=== PATIENT | male | born 1970 | race Hispanic/Latino ===

== ENCOUNTER 2016-11-19 22:31 | Emergency (ER) | payer SELFPAY ==
[~2016-11-19] VITALS: Ht 152.4 cm; Wt 75.0 kg
[~2016-11-19 22:31] MED LIST: AMOXICILLIN250 M1; ANTIVERT PO; BENADRYL 50MG C50 MG PO; BUSPIRONE5 MG PO; CELEXA20 M1 PO; CIPROFLOXACN500 MG PO; DOXYCYCL HYC100 MG PO; FLEXERIL PO; HYDROCO/APAP1 TA9 PO; NAPROSYN500 MG PO; NO HOMEMEDS; PEPCID20 MG PO; PREDNISONE10 MG PO; PRILOSEC20 MG/CAP PO; ROBITUSSIN AC10 ML PO; TESSALON PER100 MG PO; ULTRAM50 MG PO; ZITHROMAX250 MG PO; ZOLOFT25 MG PO
[2016-11-19 23:01] LABS: HEMATOCRIT 46.8 % (39.0-50.0); HEMOGLOBIN 16.5 g/dl (14.0-18.0); IMMATURE GRANULOCYTES 0.6 % (0.0-1.0); MEAN CELL VOLUME 90.2 fL CALC (80.0-100.0); MEAN CORPUSCULAR HGB 31.8 pG CALC (26.0-32.0); MEAN CORPUSCULAR HGB CONC 35.3 g/L CALC (32.0-36.0); NEUT# 3.17 thou/uL (1.82-7.42); RED BLOOD COUNT 5.19 mill/uL (4.70-6.10); RED CELL DISTRI WIDTH 12.4 % (11.5-15.5)
[2016-11-19 23:20] LABS: ALBUMIN 4.9 g/dL (3.2-5.0); ALKALINE PHOSPHATASE 95 u/l (38-126); ANION GAP 18 (6-22 (CALC)); BILIRUBIN, TOTAL 0.5 mg/dL (0.0-1.4); BUN 11 mg/dL (9-20); BUN/CREATININE RATIO 17 (12-20 (CALC)); CALCIUM 9.1 mg/dL (8.4-10.2); CARBON DIOXIDE 21 mmol/l (22-30); CHLORIDE 106 mmol/l (95-108); CREATININE 0.6 mg/dL (0.7-1.3); GFR > 60 ML/MIN (>=60 (CALC)); GFR FOR AFR.AMER. > 60 ML/MIN (>=60 (CALC)); GLUCOSE 124 mg/dL (75-110); POTASSIUM 3.9 mmol/l (3.5-5.1); SGOT/AST 38 u/l (17-59); SGPT/ALT 63 u/l (21-72); SODIUM 141 mmol/l (137-146); TOTAL PROTEIN 8.3 g/dL (6.3-8.2)
[2016-11-19 23:32] LABS: MYOGLOBIN 16 ng/mL (0 - 121)
[2016-11-20] MEDS ORDERED: NAPROSYN500 MG PO (00:18)
[2016-11-20 01:00] VITALS: BP 129/80
== END 2016-11-20 00:45 | disposition home or self-care (01) | DRG 74 ==
LOC: ED 22:31
PROVIDERS: Emergency Medicine
DX: M54.12 Radiculopathy, cervical region (principal); R20.0 Anesthesia of skin

== ENCOUNTER 2017-02-03 11:07 | Emergency (ER) | payer SELFPAY ==
[~2017-02-03] VITALS: Ht 152.4 cm; Wt 68.0 kg
[2017-02-03 12:04] LABS: HEMATOCRIT 45.6 % (39.0-50.0); HEMOGLOBIN 16.1 g/dl (14.0-18.0); IMMATURE GRANULOCYTES 0.3 % (0.0-1.0); MEAN CELL VOLUME 90.3 fL CALC (80.0-100.0); MEAN CORPUSCULAR HGB 31.9 pG CALC (26.0-32.0); MEAN CORPUSCULAR HGB CONC 35.3 g/L CALC (32.0-36.0); NEUT# 2.95 thou/uL (1.82-7.42); RED BLOOD COUNT 5.05 mill/uL (4.70-6.10); RED CELL DISTRI WIDTH 12.1 % (11.5-15.5)
[2017-02-03 12:31] LABS: ALBUMIN 4.6 g/dL (3.2-5.0); ALKALINE PHOSPHATASE 78 u/l (38-126); ANION GAP 17 (6-22 (CALC)); BILIRUBIN, TOTAL 1.1 mg/dL (0.0-1.4); BUN 9 mg/dL (9-20); BUN/CREATININE RATIO 15 (12-20 (CALC)); CALCIUM 8.8 mg/dL (8.4-10.2); CARBON DIOXIDE 23 mmol/l (22-30); CHLORIDE 105 mmol/l (95-108); CREATININE 0.6 mg/dL (0.7-1.3); GFR > 60 ML/MIN (>=60 (CALC)); GFR FOR AFR.AMER. > 60 ML/MIN (>=60 (CALC)); GLUCOSE 93 mg/dL (75-110); POTASSIUM 4.1 mmol/l (3.5-5.1); SGOT/AST 30 u/l (17-59); SGPT/ALT 42 u/l (21-72); SODIUM 140 mmol/l (137-146); TOTAL PROTEIN 7.9 g/dL (6.3-8.2)
[2017-02-03 12:56] LABS: URINE BILIRUBIN - DIPSTICK NEGATIVE (NEGATIVE); URINE BLOOD DIPSTICK NEGATIVE (NEGATIVE); URINE CLARITY CLEAR; URINE COLOR YELLOW; URINE GLUCOSE - DIPSTICK NEGATIVE (NEGATIVE); URINE KETONE NEGATIVE (NEGATIVE); URINE LEUK ESTERASE NEGATIVE (NEGATIVE); URINE NITRITE - DIPSTICK NEGATIVE (Negative); URINE PH 7.5 (4.5-8.0); URINE PROTEIN - DIPSTICK NEGATIVE (NEG-TRACE); URINE SPECIFIC GRAVITY <=1.005; URINE UROBILINOGEN - DIPSTICK 0.2 E.U./dL (0.2)
[2017-02-03 13:06] LABS: BARBITURATES NEGATIVE (NEGATIVE); COCAINE NEGATIVE (NEGATIVE); METHADONE NEGATIVE (NEGATIVE); OXCYCODONE NEGATIVE (NEGATIVE); TETRAHYDROCANNABIONOL NEGATIVE (NEGATIVE); TRICYLIC ANTIDEPRESSANTS NEGATIVE (NEGATIVE)
[2017-02-03 13:48] VITALS: BP 156/89
== END 2017-02-03 13:58 | disposition home or self-care (01) | DRG 948 ==
LOC: ED 11:07
PROVIDERS: Emergency Medicine
DX: R53.1 Weakness (principal); F41.9 Anxiety disorder, unspecified

== ENCOUNTER 2017-02-05 15:51 | Emergency (ER) | payer OTHER ==
[~2017-02-05] VITALS: Ht 152.4 cm; Wt 70.0 kg
[2017-02-05 16:28] LABS: HEMATOCRIT 45.7 % (39.0-50.0); HEMOGLOBIN 16.3 g/dl (14.0-18.0); IMMATURE GRANULOCYTES 0.3 % (0.0-1.0); MEAN CELL VOLUME 90.5 fL CALC (80.0-100.0); MEAN CORPUSCULAR HGB 32.3 pG CALC (26.0-32.0); MEAN CORPUSCULAR HGB CONC 35.7 g/L CALC (32.0-36.0); NEUT# 3.64 thou/uL (1.82-7.42); RED BLOOD COUNT 5.05 mill/uL (4.70-6.10)
[2017-02-05 16:44] LABS: ALBUMIN 4.9 g/dL (3.2-5.0); ALKALINE PHOSPHATASE 84 u/l (38-126); ANION GAP 18 (6-22 (CALC)); BILIRUBIN, TOTAL 0.8 mg/dL (0.0-1.4); BUN 14 mg/dL (9-20); BUN/CREATININE RATIO 17 (12-20 (CALC)); CARBON DIOXIDE 22 mmol/l (22-30); CHLORIDE 106 mmol/l (95-108); CREATININE 0.8 mg/dL (0.7-1.3); GFR > 60 ML/MIN (>=60 (CALC)); GFR FOR AFR.AMER. > 60 ML/MIN (>=60 (CALC)); GLUCOSE 100 mg/dL (75-110); LIPASE 140 u/l (23-300); POTASSIUM 3.9 mmol/l (3.5-5.1); SGOT/AST 28 u/l (17-59); SGPT/ALT 42 u/l (21-72); SODIUM 142 mmol/l (137-146); TOTAL PROTEIN 8.2 g/dL (6.3-8.2)
[2017-02-05 18:42] VITALS: BP 140/89
== END 2017-02-05 18:48 | disposition home or self-care (01) | DRG 556 ==
LOC: ED 15:51
PROVIDERS: Family Medicine
DX: M25.511 Pain in right shoulder (principal); M25.512 Pain in left shoulder; M79.605 Pain in left leg; R10.814 Left lower quadrant abdominal tenderness; R10.812 Left upper quadrant abdominal tenderness; F41.9 Anxiety disorder, unspecified; V49.40XA Driver injured in collision with unspecified motor vehicles in traffic accident, initial encounter
CPT/HCPCS: Q9967

== ENCOUNTER 2017-03-15 17:07 | Observation (INO) | payer SELFPAY ==
[~2017-03-15] VITALS: Ht 154.9 cm; Wt 77.0 kg
[2017-03-15 17:50] LABS: HEMATOCRIT 45.7 % (39.0-50.0); HEMOGLOBIN 16.2 g/dl (14.0-18.0); IMMATURE GRANULOCYTES 0.3 % (0.0-1.0); MEAN CELL VOLUME 90.3 fL CALC (80.0-100.0); MEAN CORPUSCULAR HGB CONC 35.4 g/L CALC (32.0-36.0); NEUT# 3.16 thou/uL (1.82-7.42); RED BLOOD COUNT 5.06 mill/uL (4.70-6.10); RED CELL DISTRI WIDTH 12.1 % (11.5-15.5)
[2017-03-15 18:06] LABS: ALKALINE PHOSPHATASE 92 u/l (38-126); ANION GAP 18 (6-22 (CALC)); BILIRUBIN, TOTAL 0.6 mg/dL (0.0-1.4); BUN 10 mg/dL (9-20); BUN/CREATININE RATIO 15 (12-20 (CALC)); CALCIUM 10.2 mg/dL (8.4-10.2); CARBON DIOXIDE 22 mmol/l (22-30); CHLORIDE 105 mmol/l (95-108); CREATININE 0.7 mg/dL (0.7-1.3); GFR > 60 ML/MIN (>=60 (CALC)); GFR FOR AFR.AMER. > 60 ML/MIN (>=60 (CALC)); GLUCOSE 95 mg/dL (75-110); POTASSIUM 4.3 mmol/l (3.5-5.1); SGOT/AST 28 u/l (17-59); SGPT/ALT 32 u/l (21-72); SODIUM 140 mmol/l (137-146); TOTAL PROTEIN 8.1 g/dL (6.3-8.2)
[2017-03-15 18:18] LABS: MYOGLOBIN 21 ng/mL (0 - 121)
[2017-03-15 18:34] LABS: URINE BILIRUBIN - DIPSTICK NEGATIVE (NEGATIVE); URINE BLOOD DIPSTICK NEGATIVE (NEGATIVE); URINE COLOR YELLOW; URINE GLUCOSE - DIPSTICK NEGATIVE (NEGATIVE); URINE KETONE NEGATIVE (NEGATIVE); URINE LEUK ESTERASE NEGATIVE (NEGATIVE); URINE NITRITE - DIPSTICK NEGATIVE (Negative); URINE PH 6.5 (4.5-8.0); URINE PROTEIN - DIPSTICK NEGATIVE (NEG-TRACE); URINE UROBILINOGEN - DIPSTICK 0.2 E.U./dL (0.2)
[2017-03-15 18:38] LABS: URINE CLARITY CLEAR
[2017-03-15 22:55] VITALS: BP 104/60
[2017-03-15 23:05] LABS: CHOLESTEROL HDL RATIO 4.1 (<4.4 (CALC))
[2017-03-16 02:59] LABS: HEMATOCRIT 43.9 % (39.0-50.0); HEMOGLOBIN 15.5 g/dl (14.0-18.0); IMMATURE GRANULOCYTES 0.4 % (0.0-1.0); MEAN CELL VOLUME 90.9 fL CALC (80.0-100.0); MEAN CORPUSCULAR HGB 32.1 pG CALC (26.0-32.0); MEAN CORPUSCULAR HGB CONC 35.3 g/L CALC (32.0-36.0); NEUT# 3.3 thou/uL (1.82-7.42); RED BLOOD COUNT 4.83 mill/uL (4.70-6.10); RED CELL DISTRI WIDTH 12.2 % (11.5-15.5)
[2017-03-16 04:00] VITALS: BP 97/60
[2017-03-16 07:09] LABS: ANION GAP 15 (6-22 (CALC)); BUN 10 mg/dL (9-20); BUN/CREATININE RATIO 14 (12-20 (CALC)); CALCIUM 9.6 mg/dL (8.4-10.2); CARBON DIOXIDE 24 mmol/l (22-30); CHLORIDE 106 mmol/l (95-108); CREATININE 0.7 mg/dL (0.7-1.3); GFR > 60 ML/MIN (>=60 (CALC)); GFR FOR AFR.AMER. > 60 ML/MIN (>=60 (CALC)); GLUCOSE 90 mg/dL (75-110); POTASSIUM 4.7 mmol/l (3.5-5.1); SODIUM 141 mmol/l (137-146)
[2017-03-16 08:32] VITALS: BP 123/78
[2017-03-16 15:00] VITALS: BP 124/76
[2017-03-16 15:35] VITALS: BP 139/77
== END 2017-03-16 15:39 | DRG 313 ==
LOC: ED 17:07 → ED-I 22:10 → ED 22:29 → MS2 22:30
PROVIDERS: Emergency Medicine; ADMIT Internal Medicine; ATTEND Internal Medicine
DX: R07.9 Chest pain, unspecified (principal); I10 Essential (primary) hypertension; R42 Dizziness and giddiness; R73.03 Prediabetes; Z82.49 Family history of ischemic heart disease and other diseases of the circulatory system; Z83.3 Family history of diabetes mellitus
CPT/HCPCS: G0378

== ENCOUNTER 2017-03-20 17:52 | Emergency (ER) | payer SELFPAY ==
[~2017-03-20] VITALS: Ht 154.9 cm; Wt 90.0 kg
[2017-03-20 19:44] LABS: HEMATOCRIT 44.9 % (39.0-50.0); HEMOGLOBIN 16.4 g/dl (14.0-18.0); IMMATURE GRANULOCYTES 0.2 % (0.0-1.0); MEAN CELL VOLUME 89.1 fL CALC (80.0-100.0); MEAN CORPUSCULAR HGB 32.5 pG CALC (26.0-32.0); MEAN CORPUSCULAR HGB CONC 36.5 g/L CALC (32.0-36.0); NEUT# 4.21 thou/uL (1.82-7.42); RED BLOOD COUNT 5.04 mill/uL (4.70-6.10); RED CELL DISTRI WIDTH 11.9 % (11.5-15.5)
[2017-03-20 20:09] LABS: ALBUMIN 4.8 g/dL (3.2-5.0); ALKALINE PHOSPHATASE 98 u/l (38-126); ANION GAP 17 (6-22 (CALC)); BILIRUBIN, TOTAL 0.9 mg/dL (0.0-1.4); BUN 12 mg/dL (9-20); BUN/CREATININE RATIO 21 (12-20 (CALC)); CALCIUM 9.7 mg/dL (8.4-10.2); CARBON DIOXIDE 23 mmol/l (22-30); CHLORIDE 100 mmol/l (95-108); CREATININE 0.6 mg/dL (0.7-1.3); GFR > 60 ML/MIN (>=60 (CALC)); GFR FOR AFR.AMER. > 60 ML/MIN (>=60 (CALC)); GLUCOSE 99 mg/dL (75-110); POTASSIUM 3.8 mmol/l (3.5-5.1); SGOT/AST 36 u/l (17-59); SGPT/ALT 29 u/l (21-72); SODIUM 136 mmol/l (137-146); TOTAL PROTEIN 8.1 g/dL (6.3-8.2)
[2017-03-20 20:21] LABS: MYOGLOBIN 15 ng/mL (0 - 121)
[2017-03-20 20:51] LABS: URINE BILIRUBIN - DIPSTICK NEGATIVE (NEGATIVE); URINE BLOOD DIPSTICK NEGATIVE (NEGATIVE); URINE COLOR YELLOW; URINE GLUCOSE - DIPSTICK NEGATIVE (NEGATIVE); URINE KETONE TRACE mg/dL (NEGATIVE); URINE LEUK ESTERASE NEGATIVE (NEGATIVE); URINE NITRITE - DIPSTICK NEGATIVE (Negative); URINE PROTEIN - DIPSTICK NEGATIVE (NEG-TRACE); URINE SPECIFIC GRAVITY 1.025; URINE UROBILINOGEN - DIPSTICK 0.2 E.U./dL (0.2)
[2017-03-20 20:52] LABS: URINE CLARITY CLEAR
[2017-03-21] MEDS ORDERED: NAPROSYN500 MG PO (00:30)
[2017-03-21 00:43] VITALS: BP 127/70
== END 2017-03-21 00:43 | disposition home or self-care (01) | DRG 313 ==
LOC: ED 17:52
PROVIDERS: Emergency Medicine
DX: R07.89 Other chest pain (principal); R73.03 Prediabetes

== ENCOUNTER 2017-03-23 14:36 | Emergency (ER) | payer SELFPAY ==
[~2017-03-23] VITALS: Ht 154.9 cm; Wt 76.0 kg
[2017-03-23] MEDS ORDERED: ASPIRIN CHEWABL81 MG PO (16:13)
[2017-03-23 16:54] LABS: HEMATOCRIT 45.1 % (39.0-50.0); HEMOGLOBIN 16.1 g/dl (14.0-18.0); IMMATURE GRANULOCYTES 0.2 % (0.0-1.0); MEAN CELL VOLUME 89.3 fL CALC (80.0-100.0); MEAN CORPUSCULAR HGB 31.9 pG CALC (26.0-32.0); MEAN CORPUSCULAR HGB CONC 35.7 g/L CALC (32.0-36.0); NEUT# 4.01 thou/uL (1.82-7.42); RED BLOOD COUNT 5.05 mill/uL (4.70-6.10); RED CELL DISTRI WIDTH 11.9 % (11.5-15.5)
[2017-03-23 17:18] LABS: ANION GAP 18 (6-22 (CALC)); BUN 12 mg/dL (9-20); BUN/CREATININE RATIO 21 (12-20 (CALC)); CALCIUM 9.4 mg/dL (8.4-10.2); CARBON DIOXIDE 23 mmol/l (22-30); CHLORIDE 98 mmol/l (95-108); CREATININE 0.6 mg/dL (0.7-1.3); GFR > 60 ML/MIN (>=60 (CALC)); GFR FOR AFR.AMER. > 60 ML/MIN (>=60 (CALC)); GLUCOSE 94 mg/dL (75-110); POTASSIUM 3.8 mmol/l (3.5-5.1); SODIUM 135 mmol/l (137-146)
[2017-03-23] MEDS ORDERED: RANITIDINE 150150 MG PO (17:46)
[2017-03-23 17:50] VITALS: BP 140/88
== END 2017-03-23 17:50 | disposition home or self-care (01) | DRG 392 ==
LOC: ED 14:36
PROVIDERS: Family Medicine
DX: K29.70 Gastritis, unspecified, without bleeding (principal); R10.13 Epigastric pain

== ENCOUNTER 2017-04-01 00:39 | Observation (INO) | payer SELFPAY ==
[~2017-04-01] VITALS: Ht 154.9 cm; Wt 72.0 kg
[~2017-04-01 00:39] MED LIST changes: +ASPIRIN CHEWABL81 MG PO; +RANITIDINE 150150 MG PO
[2017-04-01 01:49] LABS: HEMATOCRIT 43.7 % (39.0-50.0); HEMOGLOBIN 15.7 g/dl (14.0-18.0); IMMATURE GRANULOCYTES 0.2 % (0.0-1.0); MEAN CORPUSCULAR HGB CONC 35.9 g/L CALC (32.0-36.0); NEUT# 2.93 thou/uL (1.82-7.42); RED BLOOD COUNT 4.91 mill/uL (4.70-6.10)
[2017-04-01 02:02] LABS: ALBUMIN 4.6 g/dL (3.2-5.0); ALKALINE PHOSPHATASE 85 u/l (38-126); ANION GAP 18 (6-22 (CALC)); BUN 11 mg/dL (9-20); BUN/CREATININE RATIO 17 (12-20 (CALC)); CALCIUM 9.6 mg/dL (8.4-10.2); CARBON DIOXIDE 22 mmol/l (22-30); CHLORIDE 100 mmol/l (95-108); CREATININE 0.7 mg/dL (0.7-1.3); GFR > 60 ML/MIN (>=60 (CALC)); GFR FOR AFR.AMER. > 60 ML/MIN (>=60 (CALC)); GLUCOSE 89 mg/dL (75-110); SGOT/AST 20 u/l (17-59); SGPT/ALT 25 u/l (21-72); SODIUM 137 mmol/l (137-146); TOTAL PROTEIN 7.4 g/dL (6.3-8.2)
[2017-04-01 02:07] LABS: ACT PARTIAL THROMBO TIME 25.2 SECONDS (20.0-32.5); INTERNATIONAL NORMALIZED RATIO 1.1 RATIO (0.7-1.3); PROTHROMBIN TIME 11.8 SECONDS (9.0-12.5)
[2017-04-01 02:14] LABS: MYOGLOBIN 16 ng/mL (0 - 121)
[2017-04-01 03:08] LABS: URINE BILIRUBIN - DIPSTICK NEGATIVE (NEGATIVE); URINE BLOOD DIPSTICK NEGATIVE (NEGATIVE); URINE COLOR YELLOW; URINE GLUCOSE - DIPSTICK NEGATIVE (NEGATIVE); URINE KETONE TRACE mg/dL (NEGATIVE); URINE LEUK ESTERASE NEGATIVE (NEGATIVE); URINE NITRITE - DIPSTICK NEGATIVE (Negative); URINE PH 6.5 (4.5-8.0); URINE PROTEIN - DIPSTICK NEGATIVE (NEG-TRACE); URINE UROBILINOGEN - DIPSTICK 0.2 E.U./dL (0.2)
[2017-04-01 03:11] LABS: URINE CLARITY CLEAR
[2017-04-01 03:50] VITALS: BP 103/62
[2017-04-01 08:03] VITALS: BP 114/71
[2017-04-01 08:55] LABS: CHOLESTEROL HDL RATIO 3.4 (<4.4 (CALC))
[2017-04-01 11:00] VITALS: BP 119/73
[2017-04-01] MEDS ORDERED: LIPITOR20 MG PO (13:11)
[2017-04-01] MEDS ORDERED: NITROSTAT0.4 MG SL (13:11)
== END 2017-04-01 14:15 | disposition home or self-care (01) | DRG 313 ==
LOC: ED 00:39 → ED-I 03:15 → ED 03:30 → MS2 03:31
PROVIDERS: Emergency Medicine; Nurse Practitioner Family; ADMIT Internal Medicine; ATTEND Internal Medicine
DX: R07.89 Other chest pain (principal); E11.9 Type 2 diabetes mellitus without complications; E78.5 Hyperlipidemia, unspecified; F41.9 Anxiety disorder, unspecified; K21.9 Gastro-esophageal reflux disease without esophagitis; Z87.891 Personal history of nicotine dependence; Z79.84 Long term (current) use of oral hypoglycemic drugs; Z79.899 Other long term (current) drug therapy
CPT/HCPCS: G0378

== ENCOUNTER 2017-04-12 06:28 | Emergency (ER) | payer SELFPAY ==
[~2017-04-12] VITALS: Ht 154.9 cm; Wt 84.0 kg
[~2017-04-12 06:28] MED LIST changes: +LIPITOR20 MG PO; +NITROSTAT0.4 MG SL
[2017-04-12 08:34] LABS: HEMATOCRIT 43.6 % (39.0-50.0); HEMOGLOBIN 15.7 g/dl (14.0-18.0); IMMATURE GRANULOCYTES 0.2 % (0.0-1.0); MEAN CELL VOLUME 90.1 fL CALC (80.0-100.0); MEAN CORPUSCULAR HGB 32.4 pG CALC (26.0-32.0); NEUT# 3.28 thou/uL (1.82-7.42); RED BLOOD COUNT 4.84 mill/uL (4.70-6.10); RED CELL DISTRI WIDTH 12.4 % (11.5-15.5)
[2017-04-12 08:42] LABS: URINE BILIRUBIN - DIPSTICK NEGATIVE (NEGATIVE); URINE BLOOD DIPSTICK TRACE-LYSED (NEGATIVE); URINE COLOR YELLOW; URINE GLUCOSE - DIPSTICK NEGATIVE (NEGATIVE); URINE KETONE 40 mg/dL (NEGATIVE); URINE LEUK ESTERASE NEGATIVE (NEGATIVE); URINE NITRITE - DIPSTICK NEGATIVE (Negative); URINE PROTEIN - DIPSTICK NEGATIVE (NEG-TRACE)
[2017-04-12 08:44] LABS: URINE CLARITY CLEAR
[2017-04-12 08:45] LABS: BARBITURATES NEGATIVE (NEGATIVE); COCAINE NEGATIVE (NEGATIVE); METHADONE NEGATIVE (NEGATIVE); OXCYCODONE NEGATIVE (NEGATIVE); TETRAHYDROCANNABIONOL NEGATIVE (NEGATIVE); TRICYLIC ANTIDEPRESSANTS NEGATIVE (NEGATIVE)
[2017-04-12 08:47] LABS: ALBUMIN 4.8 g/dL (3.2-5.0); ALKALINE PHOSPHATASE 88 u/l (38-126); ANION GAP 19 (6-22 (CALC)); BILIRUBIN, TOTAL 1.1 mg/dL (0.0-1.4); BUN 9 mg/dL (9-20); BUN/CREATININE RATIO 16 (12-20 (CALC)); CALCIUM 9.5 mg/dL (8.4-10.2); CARBON DIOXIDE 22 mmol/l (22-30); CHLORIDE 103 mmol/l (95-108); CREATININE 0.6 mg/dL (0.7-1.3); GFR > 60 ML/MIN (>=60 (CALC)); GFR FOR AFR.AMER. > 60 ML/MIN (>=60 (CALC)); GLUCOSE 77 mg/dL (75-110); POTASSIUM 4.1 mmol/l (3.5-5.1); SGOT/AST 28 u/l (17-59); SGPT/ALT 41 u/l (21-72); SODIUM 139 mmol/l (137-146); TOTAL PROTEIN 7.6 g/dL (6.3-8.2)
[2017-04-12 08:59] LABS: MYOGLOBIN 16 ng/mL (0 - 121)
[2017-04-12 10:59] VITALS: BP 123/73
== END 2017-04-12 11:10 | disposition home or self-care (01) | DRG 149 ==
LOC: ED 06:28
PROVIDERS: Emergency Medicine
DX: R42 Dizziness and giddiness (principal); F41.9 Anxiety disorder, unspecified; R73.03 Prediabetes; K21.9 Gastro-esophageal reflux disease without esophagitis

== ENCOUNTER 2018-08-03 11:42 | Emergency (ER) | payer SELFPAY ==
[~2018-08-03] VITALS: Ht 154.9 cm; Wt 79.0 kg
[2018-08-03 12:26] LABS: HEMATOCRIT 45.4 % (39.0-50.0); HEMOGLOBIN 15.9 g/dl (14.0-18.0); IMMATURE GRANULOCYTES 0.3 % (0.0-5.0); MEAN CELL VOLUME 90.1 fL CALC (80.0-100.0); MEAN CORPUSCULAR HGB 31.5 pG CALC (26.0-32.0); NEUT# 3.2 thou/uL (1.82-7.42); RED BLOOD COUNT 5.04 mill/uL (4.70-6.10); RED CELL DISTRI WIDTH 12.3 % (11.5-15.5)
[2018-08-03 12:28] LABS: URINE BILIRUBIN - DIPSTICK NEGATIVE (NEGATIVE); URINE BLOOD DIPSTICK NEGATIVE (NEGATIVE); URINE COLOR YELLOW; URINE GLUCOSE - DIPSTICK NEGATIVE (NEGATIVE); URINE KETONE NEGATIVE (NEGATIVE); URINE LEUK ESTERASE NEGATIVE (NEGATIVE); URINE NITRITE - DIPSTICK NEGATIVE (Negative); URINE PH 6.5 (4.5-8.0); URINE PROTEIN - DIPSTICK NEGATIVE (NEG-TRACE); URINE SPECIFIC GRAVITY 1.015; URINE UROBILINOGEN - DIPSTICK 0.2 E.U./dL (0.2)
[2018-08-03 12:32] LABS: BARBITURATES NEGATIVE (NEGATIVE); COCAINE NEGATIVE (NEGATIVE); METHADONE NEGATIVE (NEGATIVE); OXCYCODONE NEGATIVE (NEGATIVE); TETRAHYDROCANNABIONOL NEGATIVE (NEGATIVE); TRICYLIC ANTIDEPRESSANTS NEGATIVE (NEGATIVE)
[2018-08-03 12:40] LABS: ALBUMIN 4.8 g/dL (3.2-5.0); ALKALINE PHOSPHATASE 77 u/l (38-126); ANION GAP 14 (6-22 (CALC)); BUN 16 mg/dL (9-20); BUN/CREATININE RATIO 28 (12-20 (CALC)); CARBON DIOXIDE 24 mmol/l (22-30); CHLORIDE 105 mmol/l (95-108); CREATININE 0.6 mg/dL (0.7-1.3); GFR > 60 ML/MIN (>=60 (CALC)); GFR FOR AFR.AMER. > 60 ML/MIN (>=60 (CALC)); LIPASE 111 u/l (23-300); POTASSIUM 3.9 mmol/l (3.5-5.1); SGOT/AST 29 u/l (17-59); SODIUM 139 mmol/l (137-146); TOTAL PROTEIN 8.2 g/dL (6.3-8.2)
[2018-08-03 12:42] LABS: BILIRUBIN, TOTAL 0.6 mg/dL (0.0-1.4)
[2018-08-03 13:36] VITALS: BP 138/77
== END 2018-08-03 12:35 | disposition short-term general hospital (02) | DRG 311 ==
LOC: ED 11:42
DX: I20.0 Unstable angina (principal); E66.3 Overweight; E78.00 Pure hypercholesterolemia, unspecified; R73.03 Prediabetes
CPT/HCPCS: J1644

== ENCOUNTER 2018-11-02 18:40 | Emergency (ER) | payer SELFPAY ==
[~2018-11-02] VITALS: Ht 154.9 cm; Wt 75.0 kg
[2018-11-02 19:40] LABS: HEMATOCRIT 47.8 % (39.0-50.0); HEMOGLOBIN 16.6 g/dl (14.0-18.0); IMMATURE GRANULOCYTES 0.2 % (0.0-5.0); MEAN CORPUSCULAR HGB 31.6 pG CALC (26.0-32.0); MEAN CORPUSCULAR HGB CONC 34.7 g/L CALC (32.0-36.0); NEUT# 5.58 thou/uL (1.82-7.42); RED BLOOD COUNT 5.25 mill/uL (4.70-6.10); RED CELL DISTRI WIDTH 12.5 % (11.5-15.5)
[2018-11-02 19:42] LABS: URINE BILIRUBIN - DIPSTICK NEGATIVE (NEGATIVE); URINE BLOOD DIPSTICK NEGATIVE (NEGATIVE); URINE COLOR YELLOW; URINE GLUCOSE - DIPSTICK NEGATIVE (NEGATIVE); URINE KETONE NEGATIVE (NEGATIVE); URINE LEUK ESTERASE NEGATIVE (NEGATIVE); URINE NITRITE - DIPSTICK NEGATIVE (Negative); URINE PH 5.5 (4.5-8.0); URINE PROTEIN - DIPSTICK TRACE mg/dL (NEG-TRACE); URINE SPECIFIC GRAVITY >=1.030; URINE UROBILINOGEN - DIPSTICK 0.2 E.U./dL (0.2)
[2018-11-02 19:45] LABS: BARBITURATES NEGATIVE (NEGATIVE); COCAINE NEGATIVE (NEGATIVE); METHADONE NEGATIVE (NEGATIVE); OXCYCODONE NEGATIVE (NEGATIVE); TETRAHYDROCANNABIONOL NEGATIVE (NEGATIVE); TRICYLIC ANTIDEPRESSANTS NEGATIVE (NEGATIVE)
[2018-11-02 19:57] LABS: ALBUMIN 5.4 g/dL (3.2-5.0); ALKALINE PHOSPHATASE 95 u/l (38-126); ANION GAP 16 (6-22 (CALC)); BUN 18 mg/dL (9-20); BUN/CREATININE RATIO 23 (12-20 (CALC)); CARBON DIOXIDE 26 mmol/l (22-30); CHLORIDE 104 mmol/l (95-108); CREATININE 0.8 mg/dL (0.7-1.3); GFR > 60 ML/MIN (>=60 (CALC)); GFR FOR AFR.AMER. > 60 ML/MIN (>=60 (CALC)); POTASSIUM 4.4 mmol/l (3.5-5.1); SGOT/AST 36 u/l (17-59); SODIUM 141 mmol/l (137-146); TOTAL PROTEIN 8.9 g/dL (6.3-8.2)
[2018-11-02] MEDS ORDERED: TAM75CAP PO (21:10)
[2018-11-02] MEDS ORDERED: NAPROXEN500 MG PO (21:10)
[2018-11-02 21:51] VITALS: BP 118/74
== END 2018-11-02 21:47 | disposition home or self-care (01) | DRG 195 ==
LOC: ED 18:40
DX: J10.1 Influenza due to other identified influenza virus with other respiratory manifestations (principal); I10 Essential (primary) hypertension

== ENCOUNTER 2019-07-10 | Emergency (ER) | payer SELFPAY ==
[~2019-07-10] MED LIST changes: +NAPROXEN500 MG PO; +TAM75CAP PO
[2019-07-10] MEDS ORDERED: BACTRIM DS1 TAB PO (05:08)
[2019-07-10] MEDS ORDERED: ASPIRIN CHEWABL81 MG PO (05:09)
[2019-07-10] MEDS ORDERED: METOPROL TAR25 MG PO (05:09)
[2019-07-10] MEDS ORDERED: ATORVASTATIN CA10 MG PO (05:10)
[2019-07-10 06:05] LABS: ALBUMIN 4.8 g/dL (3.2-5.0); ALKALINE PHOSPHATASE 84 u/l (38-126); AMYLASE 158 u/l (30-110); BILIRUBIN, TOTAL 0.9 mg/dL (0.0-1.4); BUN 13 mg/dL (9-20); BUN/CREATININE RATIO 17 (12-20 (CALC)); CHLORIDE 104 mmol/l (95-108); CREATININE 0.7 mg/dL (0.7-1.3); GFR > 60 ML/MIN (>=60 (CALC)); GFR FOR AFR.AMER. > 60 ML/MIN (>=60 (CALC)); LIPASE 134 u/l (23-300); POTASSIUM 3.8 mmol/l (3.5-5.1); SODIUM 135 mmol/l (137-146); TOTAL PROTEIN 8.3 g/dL (6.3-8.2)
[2019-07-10 06:06] LABS: HEMATOCRIT 45.9 % (39.0-50.0); HEMOGLOBIN 15.9 g/dl (14.0-18.0); IMMATURE GRANULOCYTES 0.3 % (0.0-5.0); MEAN CELL VOLUME 90.5 fL CALC (80.0-100.0); MEAN CORPUSCULAR HGB 31.4 pG CALC (26.0-32.0); MEAN CORPUSCULAR HGB CONC 34.6 g/dL CAL (32.0-36.0); NEUT# 2.64 thou/uL (1.82-7.42); RED BLOOD COUNT 5.07 mill/uL (4.70-6.10); RED CELL DISTRI WIDTH 12.5 % (11.5-15.5)
[2019-07-10 06:10] LABS: ANION GAP 15 (6-22 (CALC)); CARBON DIOXIDE 20 mmol/l (22-30); SGOT/AST 71 u/l (17-59)
[2019-07-10 06:17] LABS: MYOGLOBIN 26 ng/mL (0 - 121)
[2019-07-10] MEDS ORDERED: PEPCID20 MG PO (06:51)
== END 2019-07-10 07:15 | disposition home or self-care (01) | DRG 392 ==
PROVIDERS: Family Medicine
DX: K21.9 Gastro-esophageal reflux disease without esophagitis (principal); I10 Essential (primary) hypertension

== ENCOUNTER 2019-12-29 11:11 | Emergency (ER) | payer OTHER ==
[~2019-12-29] VITALS: Ht 152.4 cm; Wt 70.0 kg
[~2019-12-29 11:11] MED LIST changes: +ATORVASTATIN CA10 MG PO; +BACTRIM DS1 TAB PO; +METOPROL TAR25 MG PO
[2019-12-29] MEDS ORDERED: IBUPROFEN600 MG PO (12:57)
[2019-12-29] MEDS ORDERED: HYDROCO/APAP1 TA9 PO (12:57)
[2019-12-29 13:26] VITALS: BP 131/67
== END 2019-12-29 13:36 | disposition home or self-care (01) | DRG 563 ==
LOC: ED 11:11
DX: S46.912A Strain of unspecified muscle, fascia and tendon at shoulder and upper arm level, left arm, initial encounter (principal); I10 Essential (primary) hypertension; R73.03 Prediabetes; F41.9 Anxiety disorder, unspecified; K21.9 Gastro-esophageal reflux disease without esophagitis; W31.9XXA Contact with unspecified machinery, initial encounter; Y92.89 Other specified places as the place of occurrence of the external cause; Y99.0 Civilian activity done for income or pay

== ENCOUNTER 2020-07-22 19:49 | Emergency (ER) | payer SELFPAY ==
[~2020-07-22 19:49] MED LIST changes: +IBUPROFEN600 MG PO
[2020-07-22 20:16] LABS: HEMATOCRIT 47.6 % (39.0-50.0); HEMOGLOBIN 16.1 g/dl (14.0-18.0); IMMATURE GRANULOCYTES 0.7 % (0.0-5.0); MEAN CELL VOLUME 93.3 fL CALC (80.0-100.0); MEAN CORPUSCULAR HGB 31.6 pG CALC (26.0-32.0); MEAN CORPUSCULAR HGB CONC 33.8 g/dL CAL (32.0-36.0); NEUT# 6.73 thou/uL (1.82-7.42); RED BLOOD COUNT 5.1 mill/uL (4.70-6.10); RED CELL DISTRI WIDTH 12.7 % (11.5-15.5)
[2020-07-22 20:34] LABS: ALBUMIN 4.1 g/dL (3.2-5.0); ALKALINE PHOSPHATASE 79 u/l (38-126); ANION GAP 13 (6-22 (CALC)); BILIRUBIN, TOTAL 0.9 mg/dL (0.0-1.4); BUN 17 mg/dL (9-20); BUN/CREATININE RATIO 28 (12-20 (CALC)); CARBON DIOXIDE 23 mmol/l (22-30); CHLORIDE 104 mmol/l (95-108); CREATININE 0.6 mg/dL (0.7-1.3); GFR > 60 ML/MIN (>=60 (CALC)); GFR FOR AFR.AMER. > 60 ML/MIN (>=60 (CALC)); POTASSIUM 3.8 mmol/l (3.5-5.1); SGOT/AST 28 u/l (17-59); SODIUM 136 mmol/l (137-146); TOTAL PROTEIN 7.2 g/dL (6.3-8.2)
[2020-07-22 20:35] LABS: URINE BILIRUBIN - DIPSTICK NEGATIVE (NEGATIVE); URINE BLOOD DIPSTICK NEGATIVE (NEGATIVE); URINE COLOR YELLOW; URINE GLUCOSE - DIPSTICK NEGATIVE (NEGATIVE); URINE KETONE NEGATIVE (NEGATIVE); URINE LEUK ESTERASE NEGATIVE (NEGATIVE); URINE PROTEIN - DIPSTICK NEGATIVE (NEG-TRACE); URINE UROBILINOGEN - DIPSTICK 0.2 E.U./dL (0.2)
[2020-07-22 20:46] LABS: URINE NITRITE - DIPSTICK NEGATIVE (Negative)
[2020-07-22] MEDS ORDERED: MIRALAX17 GM PO (21:00)
[2020-07-22] MEDS ORDERED: CITRATE OF MEGNESIA PO (21:00)
[2020-07-22 21:03] VITALS: BP 129/76
== END 2020-07-22 21:16 | disposition home or self-care (01) | DRG 392 ==
LOC: ED 19:49
PROVIDERS: Family Medicine
DX: K59.00 Constipation, unspecified (principal); I10 Essential (primary) hypertension; F41.9 Anxiety disorder, unspecified; K21.9 Gastro-esophageal reflux disease without esophagitis; E78.00 Pure hypercholesterolemia, unspecified; R73.03 Prediabetes

== ENCOUNTER 2020-12-15 15:04 | Emergency (ER) | payer SELFPAY ==
[~2020-12-15] VITALS: Ht 152.4 cm; Wt 80.9 kg
[~2020-12-15 15:04] MED LIST changes: +CITRATE OF MEGNESIA PO; +MIRALAX17 GM PO
[2020-12-15] MEDS ORDERED: TAM75CAP PO (16:17)
[2020-12-15 16:45] VITALS: BP 142/71
== END 2020-12-15 16:55 | disposition home or self-care (01) | DRG 195 ==
LOC: ED 15:04
DX: J10.1 Influenza due to other identified influenza virus with other respiratory manifestations (principal); I10 Essential (primary) hypertension; F41.9 Anxiety disorder, unspecified; R73.03 Prediabetes; K21.9 Gastro-esophageal reflux disease without esophagitis; E78.00 Pure hypercholesterolemia, unspecified; Z20.822 Contact with and (suspected) exposure to COVID-19

== ENCOUNTER 2021-01-04 23:03 | Emergency (ER) | payer SELFPAY ==
[~2021-01-04] VITALS: Ht 152.4 cm; Wt 82.0 kg
[2021-01-04 23:49] LABS: HEMOGLOBIN 15.9 g/dl (14.0-18.0); IMMATURE GRANULOCYTES 0.7 % (0.0-5.0); MEAN CELL VOLUME 93.3 fL CALC (80.0-100.0); MEAN CORPUSCULAR HGB 32.3 pG CALC (26.0-32.0); MEAN CORPUSCULAR HGB CONC 34.6 g/dL CAL (32.0-36.0); NEUT# 4.05 thou/uL (1.82-7.42); RED BLOOD COUNT 4.93 mill/uL (4.70-6.10); RED CELL DISTRI WIDTH 12.1 % (11.5-15.5)
[2021-01-05 00:15] LABS: ALBUMIN 4.1 g/dL (3.2-5.0); ALKALINE PHOSPHATASE 77 u/l (38-126); ANION GAP 11 (6-22 (CALC)); BILIRUBIN, TOTAL 0.8 mg/dL (0.0-1.4); BUN 15 mg/dL (9-20); BUN/CREATININE RATIO 24 (12-20 (CALC)); CARBON DIOXIDE 25 mmol/l (22-30); CHLORIDE 103 mmol/l (95-108); CPK 60 u/l (52-200); CREATININE 0.6 mg/dL (0.7-1.3); GFR > 60 ML/MIN (>=60 (CALC)); GFR FOR AFR.AMER. > 60 ML/MIN (>=60 (CALC)); MAGNESIUM 1.9 mg/dL (1.6-2.3); POTASSIUM 3.7 mmol/l (3.5-5.1); SGOT/AST 35 u/l (17-59); SODIUM 136 mmol/l (137-146); TOTAL PROTEIN 6.9 g/dL (6.3-8.2)
[2021-01-05 00:16] LABS: ACT PARTIAL THROMBO TIME 21.3 SECONDS (20.0-32.5); PROTHROMBIN TIME 10.5 SECONDS (9.0-12.5)
[2021-01-05 00:24] LABS: URINE BILIRUBIN - DIPSTICK NEGATIVE (NEGATIVE); URINE BLOOD DIPSTICK NEGATIVE (NEGATIVE); URINE COLOR YELLOW; URINE GLUCOSE - DIPSTICK NEGATIVE (NEGATIVE); URINE KETONE NEGATIVE (NEGATIVE); URINE LEUK ESTERASE NEGATIVE (NEGATIVE); URINE NITRITE - DIPSTICK NEGATIVE (Negative); URINE PROTEIN - DIPSTICK NEGATIVE (NEG-TRACE); URINE SPECIFIC GRAVITY 1.015; URINE UROBILINOGEN - DIPSTICK 0.2 E.U./dL (0.2)
[2021-01-05 00:45] LABS: TSH, 3RD GENERATION 1.63 uIU/mL (0.47 - 4.68)
[2021-01-05 00:47] LABS: D-DIMER 0.17 mg/L (0.19-0.60)
[2021-01-05 01:00] VITALS: BP 156/79
== END 2021-01-05 01:05 | disposition home or self-care (01) | DRG 948 ==
LOC: ED 23:03
PROVIDERS: Family Medicine
DX: R53.83 Other fatigue (principal); I10 Essential (primary) hypertension; F41.9 Anxiety disorder, unspecified; K21.9 Gastro-esophageal reflux disease without esophagitis; E78.00 Pure hypercholesterolemia, unspecified; R73.03 Prediabetes; Z20.822 Contact with and (suspected) exposure to COVID-19

== ENCOUNTER 2021-01-17 07:14 | Emergency (ER) | payer SELFPAY ==
[~2021-01-17] VITALS: Ht 152.4 cm; Wt 74.0 kg
[2021-01-17 08:32] LABS: URINE BILIRUBIN - DIPSTICK NEGATIVE (NEGATIVE); URINE BLOOD DIPSTICK NEGATIVE (NEGATIVE); URINE COLOR YELLOW; URINE GLUCOSE - DIPSTICK NEGATIVE (NEGATIVE); URINE KETONE NEGATIVE (NEGATIVE); URINE LEUK ESTERASE NEGATIVE (NEGATIVE); URINE PROTEIN - DIPSTICK NEGATIVE (NEG-TRACE); URINE UROBILINOGEN - DIPSTICK 0.2 E.U./dL (0.2)
[2021-01-17 08:34] LABS: URINE NITRITE - DIPSTICK NEGATIVE (Negative)
[2021-01-17] MEDS ORDERED: PROAIR HFA108 MCG/AC PO (08:41)
[2021-01-17 08:51] LABS: HEMATOCRIT 49.5 % (39.0-50.0); IMMATURE GRANULOCYTES 0.6 % (0.0-5.0); MEAN CELL VOLUME 93.4 fL CALC (80.0-100.0); MEAN CORPUSCULAR HGB 32.1 pG CALC (26.0-32.0); MEAN CORPUSCULAR HGB CONC 34.3 g/dL CAL (32.0-36.0); NEUT# 5.07 thou/uL (1.82-7.42); RED BLOOD COUNT 5.3 mill/uL (4.70-6.10); RED CELL DISTRI WIDTH 12.2 % (11.5-15.5)
[2021-01-17 09:26] LABS: MYOGLOBIN 17 ng/mL (0 - 121)
[2021-01-17 09:29] LABS: ALBUMIN 4.4 g/dL (3.2-5.0); ALKALINE PHOSPHATASE 76 u/l (38-126); ANION GAP 12 (6-22 (CALC)); BUN 15 mg/dL (9-20); BUN/CREATININE RATIO 26 (12-20 (CALC)); CARBON DIOXIDE 26 mmol/l (22-30); CHLORIDE 104 mmol/l (95-108); CREATININE 0.6 mg/dL (0.7-1.3); GFR > 60 ML/MIN (>=60 (CALC)); GFR FOR AFR.AMER. > 60 ML/MIN (>=60 (CALC)); SGOT/AST 27 u/l (17-59); SODIUM 138 mmol/l (137-146); TOTAL PROTEIN 7.3 g/dL (6.3-8.2)
[2021-01-17] MEDS ORDERED: TAM75CAP PO (09:36)
[2021-01-17] MEDS ORDERED: NAPROXEN500 MG PO (09:36)
[2021-01-17 09:58] VITALS: BP 139/79
== END 2021-01-17 09:58 | disposition home or self-care (01) | DRG 195 ==
LOC: ED 07:14
PROVIDERS: Emergency Medicine
DX: J10.1 Influenza due to other identified influenza virus with other respiratory manifestations (principal); I10 Essential (primary) hypertension; F41.9 Anxiety disorder, unspecified; K21.9 Gastro-esophageal reflux disease without esophagitis; E78.00 Pure hypercholesterolemia, unspecified; R73.03 Prediabetes; Z20.822 Contact with and (suspected) exposure to COVID-19

== ENCOUNTER 2021-01-26 12:09 | Observation (INO) | payer SELFPAY ==
[~2021-01-26] VITALS: Ht 152.4 cm; Wt 77.0 kg
[~2021-01-26 12:09] MED LIST changes: +PROAIR HFA108 MCG/AC PO
--- NOTE | 2021-01-26 12:13 | NUR ---
PT TO ROOM W/STEADY GAIT.
--- NOTE | 2021-01-26 13:00 | NUR ---
PT REPORTS "STABBING" PAIN IN THE LEFT SIDE OF CHEST THAT COMES AND GOES. PT REPORTS PAIN IN THE LEFT ARM AND "FALLING ASLEEP" SENSATION IN THE LEFT SIDE OF FACE. PT WITH EQUAL SMILE AND TONGUE MIDLINE. PT'S VSS. PT REPORTS SOME NAUSEA BUT NO EMESIS. PT DENIES ANY EPISODES OF DIAPHORESIS. PT IS STABLE AT THIS TIME. WILL CONTINUE TO MONITOR.
[2021-01-26 13:03] LABS: HEMATOCRIT 44.5 % (39.0-50.0); HEMOGLOBIN 15.7 g/dl (14.0-18.0); IMMATURE GRANULOCYTES 0.3 % (0.0-5.0); MEAN CELL VOLUME 91.2 fL CALC (80.0-100.0); MEAN CORPUSCULAR HGB 32.2 pG CALC (26.0-32.0); MEAN CORPUSCULAR HGB CONC 35.3 g/dL CAL (32.0-36.0); NEUT# 2.51 thou/uL (1.82-7.42); RED BLOOD COUNT 4.88 mill/uL (4.70-6.10); RED CELL DISTRI WIDTH 11.8 % (11.5-15.5)
--- NOTE | 2021-01-26 13:15 | NUR ---
PT REPORTS CHEST PAIN RESOLVED AFTER ONE DOSE OF NITRO. PT CONTINUES TO C/O LEFT ARM PAIN. PER DR BARNES GIVE 2ND DOSE OF NITRO. PT RATES ARM PAIN AT 5/10
[2021-01-26 13:19] LABS: ALBUMIN 4.2 g/dL (3.2-5.0); ALKALINE PHOSPHATASE 78 u/l (38-126); ANION GAP 11 (6-22 (CALC)); BILIRUBIN, TOTAL 1.2 mg/dL (0.0-1.4); BUN 8 mg/dL (9-20); BUN/CREATININE RATIO 13 (12-20 (CALC)); CARBON DIOXIDE 25 mmol/l (22-30); CHLORIDE 95 mmol/l (95-108); CREATININE 0.6 mg/dL (0.7-1.3); GFR > 60 ML/MIN (>=60 (CALC)); GFR FOR AFR.AMER. > 60 ML/MIN (>=60 (CALC)); LIPASE 144 u/l (23-300); POTASSIUM 3.9 mmol/l (3.5-5.1); SGOT/AST 32 u/l (17-59); TOTAL PROTEIN 7.1 g/dL (6.3-8.2)
[2021-01-26 13:21] LABS: SODIUM 127 mmol/l (137-146)
--- NOTE | 2021-01-26 13:25 | NUR ---
PT STATES PAIN IN LEFT ARM NOW AT 3/10.
--- NOTE | 2021-01-26 13:29 | NUR ---
DR BARNES AWARE OF PT'S REMAINING PAIN IN LEFT ARM AND GIVES INSTRUCTIONS TO GIVE 3RD DOSE OF NITRO. GIVEN. PT'S BP REMAINS STABLE.
[2021-01-26 13:31] LABS: MYOGLOBIN 14 ng/mL (0 - 121)
--- NOTE | 2021-01-26 13:32 | NUR ---
PT REPORTS PAIN IN LEFT ARM/SHOULDER NOW A 2/10 AFTER 3RD DOSE OF NITRO. PT BP REMAINS STABLE. WILL CONTINUE TO MONITOR.
--- NOTE | 2021-01-26 14:00 | NUR ---
PT RESTING ON ED BED, DENIES CHEST PAIN. PT REPORTS PAIN IN LEFT SHOULDER AT 2/10. VSS. WILL CONTINUE TO MONITOR.
--- NOTE | 2021-01-26 14:35 | NUR ---
PT REPORT A FULL FEELING IN ABDOMEN, PT REPORTS BM THIS MORNING AND SLIGHTLY TENDER TO PALPATION. WILL CONTINUE TO MONITOR.
--- NOTE | 2021-01-26 16:22 | NUR ---
DR BARNES IN TO SPEAK WITH PT REGARDING POC. PT STABLE AT THIS TIME.
[2021-01-26 16:59] LABS: URINE BILIRUBIN - DIPSTICK NEGATIVE (NEGATIVE); URINE BLOOD DIPSTICK NEGATIVE (NEGATIVE); URINE COLOR YELLOW; URINE GLUCOSE - DIPSTICK NEGATIVE (NEGATIVE); URINE KETONE 15 mg/dL (NEGATIVE); URINE LEUK ESTERASE NEGATIVE (NEGATIVE); URINE PROTEIN - DIPSTICK NEGATIVE (NEG-TRACE); URINE SPECIFIC GRAVITY 1.025; URINE UROBILINOGEN - DIPSTICK 0.2 E.U./dL (0.2)
[2021-01-26 17:01] LABS: URINE NITRITE - DIPSTICK NEGATIVE (Negative)
--- NOTE | 2021-01-26 17:22 | NUR ---
PT RESTING ON ED BED. PT STABLE.
--- NOTE | 2021-01-26 18:11 | NUR ---
Reassessment of patient completed. No distress noted. Lab currently bedside blood draw
--- NOTE | 2021-01-26 18:55 | NUR ---
MEAL TRAY TO PT, PT SITTING AT THE EDGE OF BED EATING.
--- NOTE | 2021-01-26 19:47 | NUR ---
SBAR REPORT CALLED TO UZMA WAITE. PT TO GO TO ROOM 274.
--- NOTE | 2021-01-26 19:58 | NUR ---
PT TAKED TO MED/SURG ROOM 274 VIA STRETCHER IN STABLE CONDITION. PT'S BELONGINGS AND PAPERWORK HANDED OFF.
--- NOTE | 2021-01-26 20:00 | NUR ---
PT RECEIVED FROM ED TO ROOM 274. ARRIVES VIA STRETCHER ACCOMPANIED BY ED RN. PT AMBULATORY TO BED. GAIT STEADY. PT DENIES PAIN AT THIS TIME. ORIENTED TO UNIT, ROOM, CALL ADAMS, LIGHTS, TV. ICE WATER PROVIDED. CALL ADAMS WITHIN REACH. AGREES TO CALL PRN.
[2021-01-26 20:10] VITALS: BP 123/74
--- NOTE | 2021-01-26 20:41 | NUR ---
PHYSICAL ASSESMENT COMPLETE. PT CURRENTLY DENIES PAIN OR DISCOMFORT. SCHEDULED MEDICATIONS AND PRN MEDICATION ADMINISTERED, SEE E-MAR. PT DENIES ANY NEEDS AT THIS TIME. PLAN OF CARE REVIEWED, PT DENIES QUESTIONS, VERBALIZES UNDERSTANDING. ITEMS WITHIN REACH, BED LOCKED IN LOW POSITION W/ BEDRAILS UP X2. CALL ADAMS WITHIN REACH, AGREES TO CALL PRN.
[2021-01-27] VITALS: BP 106/64
--- NOTE | 2021-01-27 00:16 | NUR ---
PT LAYING IN BED WITH EYES CLOSED, APPEARS TO BE SLEEPING, APPEARS COMFORTABLE AND IN NO DISTRESS. RESPIRATIONS REGULAR AND UNLABORED. ITEMS REMAIN WITHIN REACH, CALL ADAMS REMAINS WITHIN REACH. BED REMAINS LOCKED AND IN LOW POSITION WITH BEDRAILS UP X2. WILL CONTINUE TO MONITOR.
[2021-01-27 04:00] VITALS: BP 102/68
--- NOTE | 2021-01-27 04:40 | NUR ---
PT RESTING IN BED, NO SIGNS OF DISTRESS NOTED, RESP EVEN AND UNLABORED. PT VOICES NO NEEDS OR COMPLAINTS AT THIS TIME. CALL LIGHT IN REACH, CONTINUE TO MONITOR.
[2021-01-27 06:40] LABS: ANION GAP 12 (6-22 (CALC)); BUN 7 mg/dL (9-20); BUN/CREATININE RATIO 13 (12-20 (CALC)); CALCULATED LDLCHOLESTEROL 40 mg/dL (62-129 (CALC)); CARBON DIOXIDE 23 mmol/l (22-30); CHLORIDE 100 mmol/l (95-108); CHOLESTEROL HDL RATIO 2.5 (<4.4 (CALC)); CREATININE 0.5 mg/dL (0.7-1.3); GFR > 60 ML/MIN (>=60 (CALC)); GFR FOR AFR.AMER. > 60 ML/MIN (>=60 (CALC)); HDL CHOLESTEROL 36 mg/dL (>=40); MAGNESIUM 1.8 mg/dL (1.6-2.3); POTASSIUM 4.3 mmol/l (3.5-5.1); SODIUM 130 mmol/l (137-146); TOTAL CHOLESTEROL 91 mg/dl (0-199); TOTAL TRIGLYCERIDES 75 mg/dl (30-149); VLDL CHOLESTROL 15 mg/dl (5-56 (CALC))
[2021-01-27 06:45] LABS: HEMATOCRIT 42.7 % (39.0-50.0); HEMOGLOBIN 15.5 g/dl (14.0-18.0); MEAN CELL VOLUME 89.7 fL CALC (80.0-100.0); MEAN CORPUSCULAR HGB 32.6 pG CALC (26.0-32.0); MEAN CORPUSCULAR HGB CONC 36.3 g/dL CAL (32.0-36.0); RED BLOOD COUNT 4.76 mill/uL (4.70-6.10); RED CELL DISTRI WIDTH 11.8 % (11.5-15.5)
[2021-01-27 07:56] VITALS: BP 129/79
--- NOTE | 2021-01-27 08:00 | NUR ---
PATIENT SITTING IN THE SIDE OF THE BED. ASSESSMENT DONE. PATIENT IS ALERT AND OREINT X3. PATIENT DENIES PAIN. PATIENT STATED HE WAS +FLU ON 01/17/21. STILL HAS A DRY COUGH. DENIES SOB. TELE IN PLACE. PATIENT DENIES NEEDS AT THIS TIME. CALL LIGHT IN REACH.
[2021-01-27] MEDS ORDERED: FLEXERIL5 M1 PO (10:29)
[2021-01-27] MEDS ORDERED: LIDOCAINE PATCH 55 % SD (10:30)
[2021-01-27 10:48] VITALS: BP 127/83
--- NOTE | 2021-01-27 11:56 | NUR ---
Discharge instructions given. Patient verbalizes understanding of same. Discharged in stable condition via Wheelchair to Home with staff. All belongings sent with pt.
== END 2021-01-27 11:56 | disposition home or self-care (01) | DRG 204 ==
LOC: ED 12:09 → ED-I 17:50 → ED 18:17 → MS2 18:18
PROVIDERS: Emergency Medicine; ADMIT Hospitalist; ATTEND Hospitalist
DX: R07.81 Pleurodynia (principal); I10 Essential (primary) hypertension; E11.9 Type 2 diabetes mellitus without complications; E78.5 Hyperlipidemia, unspecified; F41.9 Anxiety disorder, unspecified; K21.9 Gastro-esophageal reflux disease without esophagitis; Z87.891 Personal history of nicotine dependence; Z20.822 Contact with and (suspected) exposure to COVID-19
CPT/HCPCS: G0378; J1650

== ENCOUNTER 2021-02-21 03:30 | Emergency (ER) | payer SELFPAY ==
[~2021-02-21] VITALS: Ht 152.4 cm; Wt 81.0 kg
[~2021-02-21 03:30] MED LIST changes: +FLEXERIL5 M1 PO; +LIDOCAINE PATCH 55 % SD
[2021-02-21] MEDS ORDERED: MEDDOSEPAK PO (03:44)
[2021-02-21] MEDS ORDERED: ZPAK PO (03:45)
[2021-02-21] MEDS ORDERED: ATORVASTATIN CA80 MG PO (03:47)
[2021-02-21] MEDS ORDERED: NEOMYCIN/POLYMY1 SUS IO (03:47)
[2021-02-21] MEDS ORDERED: METOPROL TAR25 MG PO (03:48)
[2021-02-21] MEDS ORDERED: FLUCONAZOLE150 MG PO (03:49)
[2021-02-21 05:28] LABS: HEMOGLOBIN 15.2 g/dl (14.0-18.0); IMMATURE GRANULOCYTES 0.9 % (0.0-5.0); MEAN CELL VOLUME 87.3 fL CALC (80.0-100.0); MEAN CORPUSCULAR HGB 31.6 pG CALC (26.0-32.0); MEAN CORPUSCULAR HGB CONC 36.2 g/dL CAL (32.0-36.0); NEUT# 2.59 thou/uL (1.82-7.42); RED BLOOD COUNT 4.81 mill/uL (4.70-6.10); RED CELL DISTRI WIDTH 11.7 % (11.5-15.5)
[2021-02-21 06:05] LABS: ALBUMIN 4.2 g/dL (3.2-5.0); ALKALINE PHOSPHATASE 94 u/l (38-126); AMYLASE 74 u/l (30-110); BUN 7 mg/dL (9-20); BUN/CREATININE RATIO 15 (12-20 (CALC)); CARBON DIOXIDE 21 mmol/l (22-30); CHLORIDE 91 mmol/l (95-108); CREATININE 0.4 mg/dL (0.7-1.3); GFR > 60 ML/MIN (>=60 (CALC)); GFR FOR AFR.AMER. > 60 ML/MIN (>=60 (CALC)); LIPASE 90 u/l (23-300); POTASSIUM 3.8 mmol/l (3.5-5.1); SGOT/AST 31 u/l (17-59); TOTAL PROTEIN 7.2 g/dL (6.3-8.2)
[2021-02-21 06:08] LABS: ANION GAP 13 (6-22 (CALC)); BILIRUBIN, TOTAL 2.1 mg/dL (0.0-1.4); SODIUM 121 mmol/l (137-146)
[2021-02-21 06:17] LABS: MYOGLOBIN 21 ng/mL (0 - 121)
[2021-02-21 06:23] LABS: URINE BILIRUBIN - DIPSTICK NEGATIVE (NEGATIVE); URINE BLOOD DIPSTICK NEGATIVE (NEGATIVE); URINE COLOR YELLOW; URINE GLUCOSE - DIPSTICK NEGATIVE (NEGATIVE); URINE KETONE NEGATIVE (NEGATIVE); URINE LEUK ESTERASE NEGATIVE (NEGATIVE); URINE PROTEIN - DIPSTICK NEGATIVE (NEG-TRACE); URINE UROBILINOGEN - DIPSTICK 0.2 E.U./dL (0.2)
[2021-02-21 06:39] LABS: URINE NITRITE - DIPSTICK NEGATIVE (Negative)
[2021-02-21] MEDS ORDERED: PROTONIX40 MG PO (08:52)
[2021-02-21 09:00] VITALS: BP 118/64
== END 2021-02-21 09:03 | disposition home or self-care (01) | DRG 392 ==
LOC: ED 03:30
PROVIDERS: Emergency Medicine
DX: R10.11 Right upper quadrant pain (principal); R10.31 Right lower quadrant pain; E87.1 Hypo-osmolality and hyponatremia; J10.1 Influenza due to other identified influenza virus with other respiratory manifestations; K82.9 Disease of gallbladder, unspecified; I10 Essential (primary) hypertension; R73.03 Prediabetes; F41.9 Anxiety disorder, unspecified; K21.9 Gastro-esophageal reflux disease without esophagitis; E78.00 Pure hypercholesterolemia, unspecified; Z20.822 Contact with and (suspected) exposure to COVID-19
CPT/HCPCS: Q9967

== ENCOUNTER 2021-02-24 14:55 | Emergency (ER) | payer SELFPAY ==
[~2021-02-24] VITALS: Ht 152.4 cm; Wt 68.0 kg
[~2021-02-24 14:55] MED LIST changes: +ATORVASTATIN CA80 MG PO; +FLUCONAZOLE150 MG PO; +MEDDOSEPAK PO; +NEOMYCIN/POLYMY1 SUS IO; +PROTONIX40 MG PO; +ZPAK PO
[2021-02-24 16:04] LABS: HEMATOCRIT 42.9 % (39.0-50.0); HEMOGLOBIN 15.5 g/dl (14.0-18.0); IMMATURE GRANULOCYTES 0.7 % (0.0-5.0); MEAN CELL VOLUME 90.1 fL CALC (80.0-100.0); MEAN CORPUSCULAR HGB 32.6 pG CALC (26.0-32.0); MEAN CORPUSCULAR HGB CONC 36.1 g/dL CAL (32.0-36.0); NEUT# 10.55 thou/uL (1.82-7.42); RED BLOOD COUNT 4.76 mill/uL (4.70-6.10); RED CELL DISTRI WIDTH 12.3 % (11.5-15.5)
[2021-02-24 16:19] LABS: ALBUMIN 4.5 g/dL (3.2-5.0); ALKALINE PHOSPHATASE 104 u/l (38-126); ANION GAP 16 (6-22 (CALC)); BILIRUBIN, TOTAL 0.8 mg/dL (0.0-1.4); BUN 12 mg/dL (9-20); BUN/CREATININE RATIO 19 (12-20 (CALC)); CARBON DIOXIDE 22 mmol/l (22-30); CHLORIDE 99 mmol/l (95-108); CREATININE 0.6 mg/dL (0.7-1.3); GFR > 60 ML/MIN (>=60 (CALC)); GFR FOR AFR.AMER. > 60 ML/MIN (>=60 (CALC)); POTASSIUM 3.8 mmol/l (3.5-5.1); SGOT/AST 31 u/l (17-59); SODIUM 133 mmol/l (137-146); TOTAL PROTEIN 7.6 g/dL (6.3-8.2)
[2021-02-24 17:18] VITALS: BP 115/67
== END 2021-02-24 17:25 | disposition home or self-care (01) | DRG 103 ==
LOC: ED 14:55
PROVIDERS: Family Medicine
DX: R51.9 Headache, unspecified (principal); R73.03 Prediabetes; I10 Essential (primary) hypertension; E78.5 Hyperlipidemia, unspecified; F41.9 Anxiety disorder, unspecified; K21.9 Gastro-esophageal reflux disease without esophagitis

== ENCOUNTER 2021-02-26 04:47 | Emergency (ER) | payer SELFPAY ==
[~2021-02-26] VITALS: Ht 152.4 cm; Wt 78.2 kg
[2021-02-26 05:42] LABS: HEMATOCRIT 43.4 % (39.0-50.0); HEMOGLOBIN 15.5 g/dl (14.0-18.0); MEAN CELL VOLUME 90.6 fL CALC (80.0-100.0); MEAN CORPUSCULAR HGB 32.4 pG CALC (26.0-32.0); MEAN CORPUSCULAR HGB CONC 35.7 g/dL CAL (32.0-36.0); NEUT# 5.67 thou/uL (1.82-7.42); RED BLOOD COUNT 4.79 mill/uL (4.70-6.10); RED CELL DISTRI WIDTH 12.3 % (11.5-15.5)
[2021-02-26 05:55] LABS: ALBUMIN 4.4 g/dL (3.2-5.0); ALKALINE PHOSPHATASE 83 u/l (38-126); BUN 16 mg/dL (9-20); BUN/CREATININE RATIO 29 (12-20 (CALC)); CHLORIDE 98 mmol/l (95-108); CREATININE 0.6 mg/dL (0.7-1.3); ETHYL ALCOHOL 0 mg/dl (0-30); GFR > 60 ML/MIN (>=60 (CALC)); GFR FOR AFR.AMER. > 60 ML/MIN (>=60 (CALC)); POTASSIUM 3.8 mmol/l (3.5-5.1); SGOT/AST 27 u/l (17-59); SODIUM 135 mmol/l (137-146); TOTAL PROTEIN 7.5 g/dL (6.3-8.2)
[2021-02-26 06:06] LABS: ANION GAP 14 (6-22 (CALC)); BILIRUBIN, TOTAL 1.2 mg/dL (0.0-1.4); CARBON DIOXIDE 27 mmol/l (22-30)
[2021-02-26 06:14] LABS: URINE BILIRUBIN - DIPSTICK NEGATIVE (NEGATIVE); URINE BLOOD DIPSTICK NEGATIVE (NEGATIVE); URINE COLOR YELLOW; URINE GLUCOSE - DIPSTICK NEGATIVE (NEGATIVE); URINE KETONE NEGATIVE (NEGATIVE); URINE LEUK ESTERASE NEGATIVE (NEGATIVE); URINE PROTEIN - DIPSTICK NEGATIVE (NEG-TRACE); URINE UROBILINOGEN - DIPSTICK 0.2 E.U./dL (0.2)
[2021-02-26 06:19] LABS: URINE NITRITE - DIPSTICK NEGATIVE (Negative)
[2021-02-26] MEDS ORDERED: BENADRYL25 M1 PO (06:34)
[2021-02-26] MEDS ORDERED: MEDDOSEPAK PO (06:34)
[2021-02-26 06:46] VITALS: BP 154/61
== END 2021-02-26 06:50 | disposition home or self-care (01) | DRG 305 ==
LOC: ED 04:47
DX: I10 Essential (primary) hypertension (principal); F41.9 Anxiety disorder, unspecified; J11.1 Influenza due to unidentified influenza virus with other respiratory manifestations; T78.40XA Allergy, unspecified, initial encounter; X58.XXXA Exposure to other specified factors, initial encounter; R73.03 Prediabetes; K21.9 Gastro-esophageal reflux disease without esophagitis; E78.00 Pure hypercholesterolemia, unspecified; Z20.822 Contact with and (suspected) exposure to COVID-19

== ENCOUNTER 2021-03-01 08:46 | Emergency (ER) | payer SELFPAY ==
[~2021-03-01] VITALS: Ht 152.4 cm; Wt 70.0 kg
[~2021-03-01 08:46] MED LIST changes: +BENADRYL25 M1 PO
[2021-03-01 09:48] LABS: ALKALINE PHOSPHATASE 67 u/l (38-126); BILIRUBIN, TOTAL 1.6 mg/dL (0.0-1.4); BUN 12 mg/dL (9-20); BUN/CREATININE RATIO 22 (12-20 (CALC)); CARBON DIOXIDE 25 mmol/l (22-30); CHLORIDE 91 mmol/l (95-108); CREATININE 0.5 mg/dL (0.7-1.3); GFR > 60 ML/MIN (>=60 (CALC)); GFR FOR AFR.AMER. > 60 ML/MIN (>=60 (CALC)); POTASSIUM 3.6 mmol/l (3.5-5.1); SGOT/AST 37 u/l (17-59); TOTAL PROTEIN 6.8 g/dL (6.3-8.2)
[2021-03-01 09:54] LABS: ANION GAP 13 (6-22 (CALC)); SODIUM 125 mmol/l (137-146)
[2021-03-01 09:57] LABS: HEMATOCRIT 43.3 % (39.0-50.0); HEMOGLOBIN 15.8 g/dl (14.0-18.0); IMMATURE GRANULOCYTES 1.1 % (0.0-5.0); MEAN CELL VOLUME 88.2 fL CALC (80.0-100.0); MEAN CORPUSCULAR HGB 32.2 pG CALC (26.0-32.0); MEAN CORPUSCULAR HGB CONC 36.5 g/dL CAL (32.0-36.0); NEUT# 3.12 thou/uL (1.82-7.42); RED BLOOD COUNT 4.91 mill/uL (4.70-6.10); RED CELL DISTRI WIDTH 11.8 % (11.5-15.5)
[2021-03-01 10:00] LABS: MYOGLOBIN 31 ng/mL (0 - 121)
[2021-03-01 12:22] VITALS: BP 129/74
[2021-03-02] MEDS ORDERED: CYCLOBENZAPRIN7.5 M1 PO (14:53)
[2021-03-02] MEDS ORDERED: HYDROXYZ HCL25 MG PO (14:54)
== END 2021-03-01 12:32 | disposition home or self-care (01) | DRG 880 ==
LOC: ED 08:46
PROVIDERS: Emergency Medicine
DX: F41.9 Anxiety disorder, unspecified (principal); E87.1 Hypo-osmolality and hyponatremia; I10 Essential (primary) hypertension; E11.9 Type 2 diabetes mellitus without complications; K21.9 Gastro-esophageal reflux disease without esophagitis; E78.00 Pure hypercholesterolemia, unspecified

== ENCOUNTER 2021-03-02 11:07 | Observation (INO) | payer SELFPAY ==
[~2021-03-02] VITALS: Ht 152.4 cm; Wt 80.0 kg
--- NOTE | 2021-03-02 12:23 | NUR ---
PATIENT SETTLED INTO BED. LABS COLLECTED AND IV INSERTED. CONNECTED TO MONITOR AND VSS. ALERT AND ORIENTED IN NO ACUTE DISTRESS. DECLINES FURTHER NEEDS AT THIS TIME.
[2021-03-02 12:27] LABS: HEMATOCRIT 41.2 % (39.0-50.0); HEMOGLOBIN 15.3 g/dl (14.0-18.0); IMMATURE GRANULOCYTES 0.9 % (0.0-5.0); MEAN CELL VOLUME 86.9 fL CALC (80.0-100.0); MEAN CORPUSCULAR HGB 32.3 pG CALC (26.0-32.0); MEAN CORPUSCULAR HGB CONC 37.1 g/dL CAL (32.0-36.0); NEUT# 2.89 thou/uL (1.82-7.42); RED BLOOD COUNT 4.74 mill/uL (4.70-6.10); RED CELL DISTRI WIDTH 11.7 % (11.5-15.5)
[2021-03-02 12:28] LABS: URINE BILIRUBIN - DIPSTICK NEGATIVE (NEGATIVE); URINE BLOOD DIPSTICK NEGATIVE (NEGATIVE); URINE COLOR YELLOW; URINE GLUCOSE - DIPSTICK NEGATIVE (NEGATIVE); URINE KETONE NEGATIVE (NEGATIVE); URINE LEUK ESTERASE NEGATIVE (NEGATIVE); URINE PROTEIN - DIPSTICK NEGATIVE (NEG-TRACE); URINE SPECIFIC GRAVITY 1.025; URINE UROBILINOGEN - DIPSTICK 0.2 E.U./dL (0.2)
[2021-03-02 12:31] LABS: URINE NITRITE - DIPSTICK NEGATIVE (Negative)
[2021-03-02 12:45] LABS: ALBUMIN 3.7 g/dL (3.2-5.0); ALKALINE PHOSPHATASE 71 u/l (38-126); ANION GAP 10 (6-22 (CALC)); BILIRUBIN, TOTAL 1.4 mg/dL (0.0-1.4); BUN 5 mg/dL (9-20); BUN/CREATININE RATIO 12 (12-20 (CALC)); CARBON DIOXIDE 24 mmol/l (22-30); CHLORIDE 88 mmol/l (95-108); CREATININE 0.4 mg/dL (0.7-1.3); ETHYL ALCOHOL 0 mg/dl (0-30); GFR > 60 ML/MIN (>=60 (CALC)); GFR FOR AFR.AMER. > 60 ML/MIN (>=60 (CALC)); LIPASE 135 u/l (23-300); POTASSIUM 3.4 mmol/l (3.5-5.1); SGOT/AST 30 u/l (17-59); TOTAL PROTEIN 6.6 g/dL (6.3-8.2)
[2021-03-02 12:49] LABS: ACT PARTIAL THROMBO TIME 23.3 SECONDS (20.0-32.5); PROTHROMBIN TIME 10.8 SECONDS (9.0-12.5)
[2021-03-02 12:52] LABS: SODIUM 119 mmol/l (137-146)
[2021-03-02 12:58] LABS: D-DIMER 0.25 mg/L (0.19-0.60)
--- NOTE | 2021-03-02 13:36 | NUR ---
DR PARRISH AT BEDSIDE TO DISCUSS CLINICLA FINDINGS WITH PT AND DESIRE TO ADMIT. PT AGREEABLE.
--- NOTE | 2021-03-02 14:15 | NUR ---
RESTING IN BED WITHOUT COMPLAINTS. VSS. AWARE OF PENDING ADMIT AND AGREEABLE
[2021-03-02] MEDS ORDERED: CYCLOBENZAPRIN7.5 M1 PO (14:53)
[2021-03-02] MEDS ORDERED: HYDROXYZ HCL25 MG PO (14:54)
--- NOTE | 2021-03-02 15:10 | NUR ---
PATIENT AWARE OF PENDING RESULTS AND WAIT TIME. CALL ADAMS WITHIN REACH.
--- NOTE | 2021-03-02 16:06 | NUR ---
REPORT CALLED TO UZMA SNOWDEN
--- NOTE | 2021-03-02 17:00 | NUR ---
Admission Note Report Given to: SP Transported by: X Wheelchair Stretcher Transported with: X Nurse X Transporter X Patent IV O2 XX Labor Training Manager Location: ICU X MS2 PATIENT TRANSPORTED TO ROOM IN STABLE CONDITION BY UZMA MACKENZIE.
--- NOTE | 2021-03-02 17:00 | NUR ---
PATIENT RECEIVED FROM ED AT THIS TIME. PATIENT IS ALERT AND ORIENTED AND DENIES ANY PAIN AT THIS TIME. PATIENT PRESENTS WITH TELE MONITOR ON AND READING SR/ AT 78. PATIETN GIVEN ROOM AND SAFETY ORIENTATION AND BELONGINGS SHEET DONE BY THIS MAY SEE CHART. PATIENT PRECISION AGRICULTURE SPECIALIST DONE SEE INTERVENTIONS. PATIENT LUNG MCALLISTER ARE CLEAR AND BOWEL SOUNDS PRESENT IN ALL FOR QUADS AND PATIENT STATES HE HAD A BOWEL MOVEMENT IN THE EARLY AM. PATIENT DENIES ANY SHORTNESS OF BREATH BUT STATE HE "JUST FEELS WEAK". PATIENT WILL CONTINUE TO BE MONITORED.
[2021-03-02 17:10] VITALS: BP 135/74
--- NOTE | 2021-03-02 19:20 | NUR ---
PATIENT ALERT AND ORIENTED. ABLE TO MAKE NEEDS KNOWN. SPEAKS SOME SLOV[place]. NO SIGNS OF DISTRESS NOTED. ASSESSMENT COMPLETE. CALL LIGHT AND BELONGINGS REMAIN IN REACH.
[2021-03-02 19:40] VITALS: BP 111/60
[2021-03-02 21:00] VITALS: BP 100/64
[2021-03-03 00:06] VITALS: BP 107/60
--- NOTE | 2021-03-03 00:11 | NUR ---
RESTING IN BED QUIETLY ON HIS RIGHT SIDE. NO COMPLAINTS VOICED AT THIS TIME. NEW BAG OF IVF HUNG PER EMAR. CALL LIGHT AND BELONGINGS WITHIN REACH.
--- NOTE | 2021-03-03 03:40 | NUR ---
RESTING IN BED ON HIS SIDE. NO COMPLAINTS VOICED AT THIS TIME. CALL LIGHT AND BELONGINGS REMAIN IN PATIENTS REACH.
[2021-03-03 04:00] VITALS: BP 110/73
[2021-03-03 07:30] VITALS: BP 109/62
--- NOTE | 2021-03-03 07:30 | NUR ---
PATIENT DENIES ANY PAIN AT THIS TIME. PATIENT IS ALERT AND ORIENTED AT THIS TIME. FUR SCRAPER DONE SEE INTERVETNIONS. TELE MONITOR ON AND BEING MONITORED BY ED. LUNG MCALLISTER ARE CLEAR. DR. LAROSE IN TO SEE PATIENT AT THIS TIME. WILL CONTINUE TO BE MONITORED
[2021-03-03 10:58] VITALS: BP 111/63
--- NOTE | 2021-03-03 11:41 | NUR ---
PATIENT SITTING AT BEDSIDE DENIES ANY NEEDS AND OR PAIN. PATIENT LUNCH BEING SERVED. TELE MONITOR IN PLACE WILL CONTINUE TO MONITOR. SIDERAILS ARE UP CALL LIGHT WITHIN REACH.
[2021-03-03 16:04] VITALS: BP 124/81
--- NOTE | 2021-03-03 16:25 | NUR ---
PATIENT SITTING UP IN CHAIR AT THIS TIME. DENIES ANY PAIN AT THIS TIME. PATIENT WATCHING TV AT THIS TIME. TELE MONITOR IN PLACE WILL CONTINUE TO MONITOR.
[2021-03-03 16:54] LABS: BUN 9 mg/dL (9-20); BUN/CREATININE RATIO 12 (12-20 (CALC)); CARBON DIOXIDE 22 mmol/l (22-30); CREATININE 0.8 mg/dL (0.7-1.3); GFR > 60 ML/MIN (>=60 (CALC)); GFR FOR AFR.AMER. > 60 ML/MIN (>=60 (CALC))
[2021-03-03 16:59] LABS: ANION GAP 11 (6-22 (CALC)); CHLORIDE 103 mmol/l (95-108); POTASSIUM 4.2 mmol/l (3.5-5.1); SODIUM 132 mmol/l (137-146)
--- NOTE | 2021-03-03 19:00 | NUR ---
RECEIVED REPORT FROM NURSE SNOWDEN PATIENT IN BED WATCHING TV, NO DISCOMFORTS NOTED AT THIS TIME.
[2021-03-03 19:26] VITALS: BP 119/63
--- NOTE | 2021-03-03 20:38 | NUR ---
PATIENT ALERT ORIENTED AMBULATORY DENIES PAIN OR DISCOMFORT WITH ONGOING IV NS @ 125CC/HR INFUSING WELL ON RAC G20, BREATHING EVEN UNLABORED, LBM 18, ACTIVE BOWEL SOUNDS, PEDAL PULSE STRONG, PATIENT REQUESTING TO SHOWER, ASSISTED, AND ASSISTED BACK IN BED, TELEMETRY IN PLACE, CALL LIGHT AT REACH.
--- NOTE | 2021-03-03 23:47 | NUR ---
PATIENT RESTING IN BED, EYES CLOSED, BREATHING EVEN UNLABORED CALL LIGHT AT REACH.
[2021-03-04 00:02] VITALS: BP 114/69
[2021-03-04 03:55] VITALS: BP 120/69
[2021-03-04 04:24] LABS: HEMATOCRIT 44.2 % (39.0-50.0); HEMOGLOBIN 15.6 g/dl (14.0-18.0); MEAN CELL VOLUME 90.4 fL CALC (80.0-100.0); MEAN CORPUSCULAR HGB 31.9 pG CALC (26.0-32.0); MEAN CORPUSCULAR HGB CONC 35.3 g/dL CAL (32.0-36.0); RED BLOOD COUNT 4.89 mill/uL (4.70-6.10); RED CELL DISTRI WIDTH 12.5 % (11.5-15.5)
--- NOTE | 2021-03-04 04:28 | NUR ---
PATIENT APPEARS TO BE SLEEPING WITH EYES CLOSED,BREATHING EVEN UNLABORED, CALL LIGHT AT REACH.
[2021-03-04 04:53] LABS: ALBUMIN 3.6 g/dL (3.2-5.0); ALKALINE PHOSPHATASE 68 u/l (38-126); ANION GAP 11 (6-22 (CALC)); BUN 8 mg/dL (9-20); BUN/CREATININE RATIO 15 (12-20 (CALC)); CARBON DIOXIDE 23 mmol/l (22-30); CHLORIDE 105 mmol/l (95-108); CREATININE 0.5 mg/dL (0.7-1.3); GFR > 60 ML/MIN (>=60 (CALC)); GFR FOR AFR.AMER. > 60 ML/MIN (>=60 (CALC)); POTASSIUM 4.1 mmol/l (3.5-5.1); SGOT/AST 27 u/l (17-59); SODIUM 134 mmol/l (137-146); TOTAL PROTEIN 6.4 g/dL (6.3-8.2)
[2021-03-04 04:56] LABS: BILIRUBIN, TOTAL 0.5 mg/dL (0.0-1.4)
--- NOTE | 2021-03-04 07:15 | NUR ---
PATIENT SITTING UP IN CHAIR DENEIS ANY PAIN OR NEEDS AT THIS TIME. CALL LIGHT WITHIN REACH. SPIN INSTRUCTOR DONE SEE INTERVENTIONS. TELE MONITIOR IN PLACE AND BEING MONITORED BY ED AT THIS TIME. WILL PATIENT ALERT AND ORINETED.
[2021-03-04 07:26] VITALS: BP 143/76
[2021-03-04 11:03] VITALS: BP 138/95
--- NOTE | 2021-03-04 11:26 | NUR ---
PATIENT RESTING IN BED AT THIS TIME DENIES ANY NEEDS SIDERAILS ARE UP CALL LIGHT MARCELOLA RODARTE. TELE MONITOR IN PLACE AND BEING MONITORED BY ED. CHRYSTAL CORRAL AND DR. MACIAS IN TO SEE PATIENT AT THIS TIME.
--- NOTE | 2021-03-04 15:26 | NUR ---
Discharge instructions given. Patient verbalizes understanding of same. Discharged in stable condition via Ambulatory to Home with *Other. All belongings sent with pt.PATIENT WANTED TO WALK OUT.
[2021-03-05] MEDS ORDERED: SOD CHLORIDE1 G2 OD (05:20)
[2021-03-05] MEDS ORDERED: LISINOPRIL10 MG PO (05:20)
== END 2021-03-04 15:25 | disposition home or self-care (01) | DRG 641 ==
LOC: ED 11:07 → ED-I 13:00 → ED 13:38 → MS2 13:39
PROVIDERS: Nurse Practitioner Family; ADMIT Internal Medicine; ATTEND Internal Medicine
DX: E87.1 Hypo-osmolality and hyponatremia (principal); I10 Essential (primary) hypertension; E11.9 Type 2 diabetes mellitus without complications; E78.5 Hyperlipidemia, unspecified; F41.9 Anxiety disorder, unspecified; K21.9 Gastro-esophageal reflux disease without esophagitis; Z20.822 Contact with and (suspected) exposure to COVID-19
CPT/HCPCS: G0378

== ENCOUNTER 2021-03-05 02:56 | Emergency (ER) | payer SELFPAY ==
[~2021-03-05] VITALS: Ht 152.4 cm; Wt 75.0 kg
[~2021-03-05 02:56] MED LIST changes: +CYCLOBENZAPRIN7.5 M1 PO; +HYDROXYZ HCL25 MG PO
[2021-03-05 03:48] LABS: HEMATOCRIT 43.3 % (39.0-50.0); HEMOGLOBIN 15.7 g/dl (14.0-18.0); IMMATURE GRANULOCYTES 0.6 % (0.0-5.0); MEAN CELL VOLUME 88.7 fL CALC (80.0-100.0); MEAN CORPUSCULAR HGB 32.2 pG CALC (26.0-32.0); MEAN CORPUSCULAR HGB CONC 36.3 g/dL CAL (32.0-36.0); NEUT# 2.77 thou/uL (1.82-7.42); RED BLOOD COUNT 4.88 mill/uL (4.70-6.10); RED CELL DISTRI WIDTH 11.9 % (11.5-15.5)
[2021-03-05 03:49] LABS: URINE BILIRUBIN - DIPSTICK NEGATIVE (NEGATIVE); URINE BLOOD DIPSTICK NEGATIVE (NEGATIVE); URINE COLOR YELLOW; URINE GLUCOSE - DIPSTICK NEGATIVE (NEGATIVE); URINE KETONE NEGATIVE (NEGATIVE); URINE LEUK ESTERASE NEGATIVE (NEGATIVE); URINE NITRITE - DIPSTICK NEGATIVE (Negative); URINE PH 6.5 (4.5-8.0); URINE PROTEIN - DIPSTICK NEGATIVE (NEG-TRACE); URINE UROBILINOGEN - DIPSTICK 0.2 E.U./dL (0.2)
[2021-03-05 04:04] LABS: ALBUMIN 4.2 g/dL (3.2-5.0); ALKALINE PHOSPHATASE 86 u/l (38-126); BUN 7 mg/dL (9-20); BUN/CREATININE RATIO 13 (12-20 (CALC)); CARBON DIOXIDE 23 mmol/l (22-30); CHLORIDE 95 mmol/l (95-108); CREATININE 0.5 mg/dL (0.7-1.3); ETHYL ALCOHOL 0 mg/dl (0-30); GFR > 60 ML/MIN (>=60 (CALC)); GFR FOR AFR.AMER. > 60 ML/MIN (>=60 (CALC)); MAGNESIUM 1.7 mg/dL (1.6-2.3); POTASSIUM 3.4 mmol/l (3.5-5.1); SGOT/AST 40 u/l (17-59); TOTAL PROTEIN 7.4 g/dL (6.3-8.2)
[2021-03-05 04:07] LABS: ANION GAP 11 (6-22 (CALC)); BILIRUBIN, TOTAL 0.8 mg/dL (0.0-1.4); SODIUM 126 mmol/l (137-146)
[2021-03-05 04:33] LABS: TSH, 3RD GENERATION 2.38 uIU/mL (0.47 - 4.68)
[2021-03-05] MEDS ORDERED: LISINOPRIL10 MG PO (05:20)
[2021-03-05] MEDS ORDERED: SOD CHLORIDE1 G2 OD (05:20)
[2021-03-05 06:02] VITALS: BP 156/80
== END 2021-03-05 06:20 | disposition home or self-care (01) | DRG 305 ==
LOC: ED 02:56
PROVIDERS: Family Medicine
DX: I10 Essential (primary) hypertension (principal); E87.1 Hypo-osmolality and hyponatremia; H93.11 Tinnitus, right ear; F41.9 Anxiety disorder, unspecified; K21.9 Gastro-esophageal reflux disease without esophagitis; E78.00 Pure hypercholesterolemia, unspecified; R73.03 Prediabetes

== ENCOUNTER 2021-03-05 23:24 | Observation (INO) | payer SELFPAY ==
[~2021-03-05] VITALS: Ht 152.4 cm; Wt 79.0 kg
[~2021-03-05 23:24] MED LIST changes: +LISINOPRIL10 MG PO; +SOD CHLORIDE1 G2 OD
--- NOTE | 2021-03-05 23:25 | NUR ---
BY EMS TO ROOM
[2021-03-05 23:59] LABS: HEMATOCRIT 40.3 % (39.0-50.0); HEMOGLOBIN 14.8 g/dl (14.0-18.0); IMMATURE GRANULOCYTES 0.3 % (0.0-5.0); MEAN CORPUSCULAR HGB CONC 36.7 g/dL CAL (32.0-36.0); NEUT# 4.33 thou/uL (1.82-7.42); RED BLOOD COUNT 4.63 mill/uL (4.70-6.10); RED CELL DISTRI WIDTH 11.9 % (11.5-15.5)
[2021-03-06] VITALS (16 sets, daily range): BP systolic 98–151; BP diastolic 58–96
[2021-03-06 00:24] LABS: INTERNATIONAL NORMALIZED RATIO 0.9 RATIO (0.7-1.3); PROTHROMBIN TIME 9.9 SECONDS (9.0-12.5)
[2021-03-06 00:29] LABS: ALBUMIN 3.9 g/dL (3.2-5.0); ALKALINE PHOSPHATASE 69 u/l (38-126); BUN 6 mg/dL (9-20); BUN/CREATININE RATIO 10 (12-20 (CALC)); CARBON DIOXIDE 25 mmol/l (22-30); CHLORIDE 87 mmol/l (95-108); CREATININE 0.6 mg/dL (0.7-1.3); ETHYL ALCOHOL 0 mg/dl (0-30); GFR > 60 ML/MIN (>=60 (CALC)); GFR FOR AFR.AMER. > 60 ML/MIN (>=60 (CALC)); LIPASE 155 u/l (23-300); MAGNESIUM 1.6 mg/dL (1.6-2.3); POTASSIUM 3.8 mmol/l (3.5-5.1); TOTAL PROTEIN 6.7 g/dL (6.3-8.2)
[2021-03-06 00:33] LABS: ANION GAP 11 (6-22 (CALC)); BILIRUBIN, TOTAL 1.2 mg/dL (0.0-1.4); SGOT/AST 72 u/l (17-59); SODIUM 119 mmol/l (137-146)
--- NOTE | 2021-03-06 00:40 | NUR ---
PT [facility] SCORE AT 0. PT AWARE OF PLAN OF CARE
--- NOTE | 2021-03-06 01:06 | NUR ---
PT LAYING COMFORTABLY ON ED COT
--- NOTE | 2021-03-06 01:16 | NUR ---
PT AWARE OF NEEDING TO PROVIDE URINE SAMPLE
[2021-03-06 01:56] LABS: URINE BILIRUBIN - DIPSTICK NEGATIVE (NEGATIVE); URINE BLOOD DIPSTICK NEGATIVE (NEGATIVE); URINE COLOR YELLOW; URINE GLUCOSE - DIPSTICK NEGATIVE (NEGATIVE); URINE KETONE NEGATIVE (NEGATIVE); URINE LEUK ESTERASE NEGATIVE (NEGATIVE); URINE PH 7.5 (4.5-8.0); URINE PROTEIN - DIPSTICK NEGATIVE (NEG-TRACE); URINE SPECIFIC GRAVITY 1.015; URINE UROBILINOGEN - DIPSTICK 0.2 E.U./dL (0.2)
[2021-03-06 01:57] LABS: URINE NITRITE - DIPSTICK NEGATIVE (Negative)
--- NOTE | 2021-03-06 03:51 | NUR ---
PT SLEEPING ON ED COT
--- NOTE | 2021-03-06 04:20 | NUR ---
.ADM Admission Note Report Given to: DARÍO RN Transported by: Wheelchair Y Stretcher Transported with: Y Nurse Transporter Y Patent IV O2 Y Sock And Stocking Ironer Location: Y ICU MS2
--- NOTE | 2021-03-06 04:28 | NUR ---
RECEIVED INTO ICU BED 6 FROM ER. PATIENT ABLE TO AMBULATE FROM STRETCHER TO BED WITHOUT ANY DIFFICULTY. STABLE STANCE AND GAIT NOTED. ALERT AND ORIENTED, SPEECH CLEAR AND APPROPRIATE. FOLLOWS COMMANDS. MOVES ALL EXTREMITIES EQUAL AND WELL. DENIES HEADACHE, VISUAL DISTURBANCES, NUMBNESS OR TINGLING. ADMISSION ASSESSMENT CONPLETED. COMFORT/RN FROM M/S ASSISTED WITH INTERPRETING. ORIENTED TO SURROUNDINGS. EXPLAINED PLAN OF CARE. CALL ADAMS IN REACH. CARIA MONITOR SHOWS SR.
--- NOTE | 2021-03-06 07:29 | NUR ---
Report received from carbon blocks press operator nurse. Patient awake stating that he slept well.
--- NOTE | 2021-03-06 09:26 | NUR ---
Rounded on patient with Dr. Webber. Plan was explained to patient and further testing.
--- NOTE | 2021-03-06 10:18 | NUR ---
Took patient to MRI in a wheelchair.
[2021-03-06 10:26] LABS: CHOLESTEROL HDL RATIO 3.1 (<4.4 (CALC))
--- NOTE | 2021-03-06 11:24 | NUR ---
Patient return from MRI. IV fluids restarted, blood pressure 130/78, HR 60, 100% oxygen on RA and temp 96.7. Helped patient with urinal and collected urine specimen in a cup. Patient reports muscle aches but tolerable. Call lights within reach. Will continue to monitor.
--- NOTE | 2021-03-06 20:20 | NUR ---
RESTING IN BED WITH EYES CLOSED. AWAKENS READILY TO NAME. DENIES ANY PAIN, NUMBNESS OR TINGLING. NEURO STATUS STABLE. VSS. SHIFT ASSESSMENT COMPLETED. NS INFUSING AT 80 ML/HR INTO LAC IV SITE. RAC SALINE LOCK INTACT. CLAIMS CORRESPONDENCE CLERK SHOWS SR. CALL ADAMS IN REACH.
[2021-03-07] VITALS (14 sets, daily range): BP systolic 97–141; BP diastolic 64–84
--- NOTE | 2021-03-07 | NUR ---
RESTING WITHOUT COMPLAINTS. VSS. RESP NON-LABORED. SR ON MONITOR.
--- NOTE | 2021-03-07 04:15 | NUR ---
SLEEPS FOR LONG INTERVALS. VSS. SB-SR ON MONITOR.
[2021-03-07 05:13] LABS: HEMATOCRIT 43.8 % (39.0-50.0); HEMOGLOBIN 16.4 g/dl (14.0-18.0); MEAN CELL VOLUME 84.7 fL CALC (80.0-100.0); MEAN CORPUSCULAR HGB 31.7 pG CALC (26.0-32.0); MEAN CORPUSCULAR HGB CONC 37.4 g/dL CAL (32.0-36.0); RED BLOOD COUNT 5.17 mill/uL (4.70-6.10); RED CELL DISTRI WIDTH 11.7 % (11.5-15.5)
[2021-03-07 05:24] LABS: ANION GAP 16 (6-22 (CALC)); BUN 6 mg/dL (9-20); BUN/CREATININE RATIO 11 (12-20 (CALC)); CARBON DIOXIDE 21 mmol/l (22-30); CHLORIDE 89 mmol/l (95-108); CREATININE 0.5 mg/dL (0.7-1.3); GFR > 60 ML/MIN (>=60 (CALC)); GFR FOR AFR.AMER. > 60 ML/MIN (>=60 (CALC)); MAGNESIUM 1.8 mg/dL (1.6-2.3); POTASSIUM 4.5 mmol/l (3.5-5.1); SODIUM 122 mmol/l (137-146)
--- NOTE | 2021-03-07 07:05 | NUR ---
pt resting in bed with eyes closed; no apparent distress noted; easy to arouse; offers no complaints; pt speak some hungarian, able to make needs known; admits to headache; will medicate; no n/v noted; resp even and unlabored; lungs clear bilat; skin color wnl; ra; hr reg; strong pulses; no edema noted; sb on monitor; abd soft with bs present; no bm noted per law writer; no urine to inspect at this time; urinal at bedside; #20 patent to lac with ivf infusing without complication; #20 saline locked to rac; no redness or edema noted at site; plan of care/ meds explained; call light within reach; will continue to monitor
--- NOTE | 2021-03-07 08:12 | NUR ---
awake in bed eating breakfast; sr on monitor; iv intact and patent; call light within reach; will continue to monitor
--- NOTE | 2021-03-07 09:33 | NUR ---
DR MACIAS AT BEDSIDE AT THIS TIME.
--- NOTE | 2021-03-07 10:20 | NUR ---
awake in bed; fluids restriction explained; pt admits to understanding; iv intact and patent; sr on monitor; call light within reach; will continue to monitor
--- NOTE | 2021-03-07 10:27 | NUR ---
Garth Vasquez RN utilized to interpret; fluid restriction and transfer to med surg explained; pt verbalized understanding; will continue to monitor
--- NOTE | 2021-03-07 12:15 | NUR ---
pt awake in bed; pt with complaints of nausea; emesis noted to emesis bag; medicated as per orders; sr on monitor; iv intact and patent; no redness or edema noted at site; call light within reach; will continue to monitor
--- NOTE | 2021-03-07 14:07 | NUR ---
awake in bed; offers no complaints; iv intact and patent; sr on monitor; call light within reach; will continue to monitor
--- NOTE | 2021-03-07 16:00 | NUR ---
pt awake in bed conversing on cell phone; no distress noted; pt offers no complaints; iv intact and patent; sr on monitor; call light within reach; will continue to monitor
--- NOTE | 2021-03-07 18:20 | NUR ---
awake in bed eating dinner; no apparent distress noted; pt offers no complaints; iv intact and patent; sr on monitor; pt updated on pending transfer to med surg [facility]; call light within reach
--- NOTE | 2021-03-07 20:20 | NUR ---
RESTING IN BED. NO COMPLAINTS. VSS. SHIFT ASSESSMENT COMPLETED. MONITOR SR. IV NS INFUSING WITHOUT INCIDENT. DISCUSSED PLAN OF CARE. DENIES NEEDS AT THIS TIME. CALL ADAMS IN REACH.
--- NOTE | 2021-03-07 21:35 | NUR ---
PATIENT STATES SODIUM TABLETS MAKE HIM SICK TO HIS STOMACH. MEDICATED WITH ZOFRAN IVP ORDERED.
--- NOTE | 2021-03-08 | NUR ---
RESTING WITH EYES CLOSED. RESP NON-LABORED. VSS. SR ON MONITOR.
[2021-03-08 04:00] VITALS: BP 115/72
--- NOTE | 2021-03-08 04:00 | NUR ---
SLEEPS FOR LONG INTERVALS. VSS. RESP EVEN AND UNLABORED. IV INFUSING WITHOUT INCIDENT. SB-SR ON MONITOR. VOIDS LARGE AMOUNTS OF CLEAR YELLOW URINE.
[2021-03-08 05:03] LABS: HEMATOCRIT 43.9 % (39.0-50.0); HEMOGLOBIN 15.8 g/dl (14.0-18.0); MEAN CELL VOLUME 87.6 fL CALC (80.0-100.0); MEAN CORPUSCULAR HGB 31.5 pG CALC (26.0-32.0); RED BLOOD COUNT 5.01 mill/uL (4.70-6.10)
[2021-03-08 05:23] LABS: ANION GAP 12 (6-22 (CALC)); BUN 5 mg/dL (9-20); BUN/CREATININE RATIO 10 (12-20 (CALC)); CARBON DIOXIDE 22 mmol/l (22-30); CHLORIDE 97 mmol/l (95-108); CREATININE 0.5 mg/dL (0.7-1.3); GFR > 60 ML/MIN (>=60 (CALC)); GFR FOR AFR.AMER. > 60 ML/MIN (>=60 (CALC)); MAGNESIUM 1.9 mg/dL (1.6-2.3); POTASSIUM 4.4 mmol/l (3.5-5.1); SODIUM 125 mmol/l (137-146)
--- NOTE | 2021-03-08 06:54 | NUR ---
ASSUMED CARE OF PT FROM UZMA MALDONADO. PT RESTING IN BED WITH EYES CLOSED, NO S/S OF DISTRESS NOTED.
[2021-03-08 07:00] VITALS: BP 97/51
--- NOTE | 2021-03-08 08:35 | NUR ---
ROUNDING AT BEDSIDE
[2021-03-08 12:00] VITALS: BP 114/88
--- NOTE | 2021-03-08 12:44 | NUR ---
PT AT BEDSIDE WITH PATIENT
--- NOTE | 2021-03-08 13:18 | NUR ---
Subjective: Patient states that L ankle keeps on inverting when trying to stand on it. Objective: Patient did the following: Seated B LE AROM exercises: seated hip flexion, knee extension, hamstring curls, hip abduction, hip adduction, and ankle pumps for 10 reps x 2 sets. Patient also did heel raises in standing and side stepping for 10 reps each routine. Patient also did gait training covering 8 feet x 3 reps with CGA to SBA x 1, level surfaces, with patient c/o L foot inverting with each heel strike and push off. Assessment: Patient exhibiting improving muscle strength as exhibited by improving gait capability on level surfaces in the patient's room with CGA to SBA x 1. Plan: Patient to continue working with PT intervention to help improve dynamic balance, endurance, and functional weight bearing ADL stability. Am Pac score presently at 13 points, discharge recommendation is home health intervention.
--- NOTE | 2021-03-08 13:45 | NUR ---
REPORT GIVEN TO UZMA HOUSTON ON PHONE.
--- NOTE | 2021-03-08 13:54 | NUR ---
REPORT RECEIVED FROM RAMIREZ IN ICU, PT ARRIVED ON UNIT @ 1354, ALERT AND ORIENTED X 3, ORIENTED TO ROOM AND CALL ADAMS, NO C/O DISCOMFORT,CALL ADAMS IN REACH AND BED LOCKED IN LOEST POSITION.
[2021-03-08 14:23] VITALS: BP 124/78
--- NOTE | 2021-03-08 16:00 | NUR ---
REPORT REC FROM Sage COCHRAN RN. PT CARE RESUMED AT THIS TIME BY THIS SQL SERVER BI DEVELOPER. PT FOUND AMBULATING ROOM UPON ENTERING; STEADY GAIT OBSERVED. PT DENIES ANY PAIN AT THIS TIME. CALL LIGHT WITHIN REACH.
[2021-03-08 19:30] VITALS: BP 116/71
--- NOTE | 2021-03-08 20:30 | NUR ---
PT RESTING IN BED, NO SIGNS OF DISTRESS NOTED, RESP EVEN AND UNLABORED. PT ALERT AND ORIENTED X3, ZAMBIAN SPEAKING, DRYWALLER SPEAKS ZAMBIAN. DISCUSSED POC, AND LABS. SKIN INTACT, PT AMBULATING IN ROOM WITH STEADY GAIT, IV X2 SL, FLUSHED WELL. ASSESSMENT COMPLETED, PT MEDICATED PER MAR, CALL LIGHT IN REACH,CONTINUE TO MONITOR.
--- NOTE | 2021-03-09 | NUR ---
PT RESTING IN BED WITH EYES CLOSED, NO SIGN OF DISTRESS NOTED, RESP EVEN AND UNLABORED, CALL LIGHT IN REACH,CONTINUE TO MONITOR.
[2021-03-09 03:50] VITALS: BP 109/64
--- NOTE | 2021-03-09 04:31 | NUR ---
AM LABS OBTAINED, PT VOICES NO NEEDS OR COMPLAINTS AT THIS TIME, CALL LIGHT IN REACH,CONTINUE TO MONITOR.
[2021-03-09 05:02] LABS: HEMATOCRIT 42.8 % (39.0-50.0); HEMOGLOBIN 15.3 g/dl (14.0-18.0); MEAN CELL VOLUME 89.7 fL CALC (80.0-100.0); MEAN CORPUSCULAR HGB 32.1 pG CALC (26.0-32.0); MEAN CORPUSCULAR HGB CONC 35.7 g/dL CAL (32.0-36.0); RED BLOOD COUNT 4.77 mill/uL (4.70-6.10); RED CELL DISTRI WIDTH 12.4 % (11.5-15.5)
[2021-03-09 05:17] LABS: ANION GAP 12 (6-22 (CALC)); BUN 10 mg/dL (9-20); BUN/CREATININE RATIO 16 (12-20 (CALC)); CARBON DIOXIDE 22 mmol/l (22-30); CHLORIDE 100 mmol/l (95-108); CREATININE 0.6 mg/dL (0.7-1.3); GFR > 60 ML/MIN (>=60 (CALC)); GFR FOR AFR.AMER. > 60 ML/MIN (>=60 (CALC)); MAGNESIUM 1.8 mg/dL (1.6-2.3); POTASSIUM 4.4 mmol/l (3.5-5.1); SODIUM 129 mmol/l (137-146)
--- NOTE | 2021-03-09 08:00 | NUR ---
PT EATING BREAKFAST UPON ENTERING ROOM. STATES HAVING NO PAIN AT THIS TIME. PT HAS 2 IV SITES LOCATED ON RAC 20G AND LAC 20G BOTH FLUSHED WITH NO RESISTANCE. ASSESSMENT ALLOWED AT THIS TIME: LUNG SOUNDS CLEAR UPPER/LOWER LOBES ANTERIORLY AND POSTERIORLY. HEART SOUNDS ARE REGULAR. BOWEL SOUNDS HEARD X4. FALL PRECAUTIONS ARE IN PLACE. CALL LIGHT AND PERSONAL ITEMS ARE WITHIN REACH.
[2021-03-09] MEDS ORDERED: SOD CHLORIDE1 G2 OD (10:49)
--- NOTE | 2021-03-09 12:00 | NUR ---
PT EATING LUNCH. STATES NO PAIN AND NO OTHER NEEDS AT THIS TIME. CALL LIGHT AND PERSONAL ITEMS ARE WITHIN REACH.
[2021-03-09 15:00] VITALS: BP 139/82
--- NOTE | 2021-03-09 15:22 | NUR ---
Discharge instructions given. Patient verbalizes understanding of same. Discharged in stable condition via Ambulatory to Home with staff. PT DENIED TO USE WC WOULD RATHER WALK INSTEAD. (MANAGER PUBLIC) ACCOMPANIED PT DOWN TO THE LOBBY WITH PT. All belongings sent with pt. GATHERED MEDICATIONS THAT WERE AT PHARMACY. GETACHEW FROM PHARMACY DROPPED IT OFF TO CNC LATHE MACHINIST.
[2021-03-10] MEDS ORDERED: SOD CHLORIDE1 GM OD (19:57)
[2021-03-10] MEDS ORDERED: SOD CHLORIDE1 G2 OD (20:19)
[2021-03-10] MEDS ORDERED: SOD CHLORIDE1 G2 PO (20:31)
== END 2021-03-09 15:22 | disposition home or self-care (01) | DRG 645 ==
LOC: ED 23:24 → ED-I 03-06 03:39 → ED 03-06 03:55 → ICU 03-06 03:56 → MS2 03-08 13:54
PROVIDERS: Nurse Practitioner; ADMIT Hospitalist; ATTEND Hospitalist
DX: E22.2 Syndrome of inappropriate secretion of antidiuretic hormone (principal); I10 Essential (primary) hypertension; E11.9 Type 2 diabetes mellitus without complications; E78.5 Hyperlipidemia, unspecified; F41.9 Anxiety disorder, unspecified; K21.9 Gastro-esophageal reflux disease without esophagitis; Z20.822 Contact with and (suspected) exposure to COVID-19; Z87.891 Personal history of nicotine dependence
CPT/HCPCS: G0378; J3101; Q9967

== ENCOUNTER 2021-03-10 18:11 | Emergency (ER) | payer SELFPAY ==
[~2021-03-10] VITALS: Ht 154.9 cm; Wt 80.0 kg
[2021-03-10 19:28] LABS: HEMOGLOBIN 14.3 g/dl (14.0-18.0); IMMATURE GRANULOCYTES 0.1 % (0.0-5.0); MEAN CELL VOLUME 88.9 fL CALC (80.0-100.0); MEAN CORPUSCULAR HGB 31.8 pG CALC (26.0-32.0); MEAN CORPUSCULAR HGB CONC 35.8 g/dL CAL (32.0-36.0); NEUT# 3.67 thou/uL (1.82-7.42); RED BLOOD COUNT 4.5 mill/uL (4.70-6.10); RED CELL DISTRI WIDTH 12.1 % (11.5-15.5)
[2021-03-10 19:42] LABS: ALKALINE PHOSPHATASE 83 u/l (38-126); ANION GAP 11 (6-22 (CALC)); BILIRUBIN, TOTAL 1.1 mg/dL (0.0-1.4); BUN 6 mg/dL (9-20); BUN/CREATININE RATIO 13 (12-20 (CALC)); CARBON DIOXIDE 24 mmol/l (22-30); CHLORIDE 91 mmol/l (95-108); CREATININE 0.5 mg/dL (0.7-1.3); GFR > 60 ML/MIN (>=60 (CALC)); GFR FOR AFR.AMER. > 60 ML/MIN (>=60 (CALC)); POTASSIUM 3.8 mmol/l (3.5-5.1); SGOT/AST 37 u/l (17-59); SODIUM 122 mmol/l (137-146); TOTAL PROTEIN 6.9 g/dL (6.3-8.2)
[2021-03-10] MEDS ORDERED: SOD CHLORIDE1 GM OD (19:57)
[2021-03-10] MEDS ORDERED: SOD CHLORIDE1 G2 OD (20:19)
[2021-03-10] MEDS ORDERED: SOD CHLORIDE1 G2 PO (20:31)
[2021-03-10 21:00] VITALS: BP 132/80
== END 2021-03-10 21:05 | disposition home or self-care (01) | DRG 645 ==
LOC: ED 18:11
PROVIDERS: Emergency Medicine
DX: E22.2 Syndrome of inappropriate secretion of antidiuretic hormone (principal); I10 Essential (primary) hypertension; F41.9 Anxiety disorder, unspecified; K21.9 Gastro-esophageal reflux disease without esophagitis; E78.00 Pure hypercholesterolemia, unspecified; R73.03 Prediabetes

== ENCOUNTER 2021-10-21 16:25 | Emergency (ER) | payer SELFPAY ==
[~2021-10-21] VITALS: Ht 154.9 cm; Wt 84.5 kg
[~2021-10-21 16:25] MED LIST changes: +SOD CHLORIDE1 G2 PO; +SOD CHLORIDE1 GM OD
[2021-10-21] MEDS ORDERED: ULTRAM50 M1 PO (22:00)
[2021-10-21 22:14] VITALS: BP 146/102
== END 2021-10-21 22:19 | disposition home or self-care (01) | DRG 605 ==
LOC: ED 16:25
DX: S80.12XA Contusion of left lower leg, initial encounter (principal); E22.2 Syndrome of inappropriate secretion of antidiuretic hormone; I10 Essential (primary) hypertension; F41.9 Anxiety disorder, unspecified; K21.9 Gastro-esophageal reflux disease without esophagitis; E78.00 Pure hypercholesterolemia, unspecified; R73.03 Prediabetes; W20.8XXA Other cause of strike by thrown, projected or falling object, initial encounter

== ENCOUNTER 2021-11-02 14:54 | Emergency (ER) | payer SELFPAY ==
[2021-11-02] VITALS (13 sets, daily range): BP systolic 124–147; BP diastolic 72–86
[~2021-11-02] VITALS: Ht 154.9 cm; Wt 86.3 kg
[~2021-11-02 14:54] MED LIST changes: +ULTRAM50 M1 PO
[2021-11-02] MEDS ORDERED: ULTRAM50 M1 PO (20:02)
== END 2021-11-02 20:16 | disposition home or self-care (01) | DRG 605 ==
LOC: ED 14:54
DX: S80.12XA Contusion of left lower leg, initial encounter (principal); E22.2 Syndrome of inappropriate secretion of antidiuretic hormone; I10 Essential (primary) hypertension; F41.9 Anxiety disorder, unspecified; K21.9 Gastro-esophageal reflux disease without esophagitis; E78.00 Pure hypercholesterolemia, unspecified; W20.8XXA Other cause of strike by thrown, projected or falling object, initial encounter

== ENCOUNTER 2022-06-25 09:40 | Emergency (ER) | payer SELFPAY ==
[~2022-06-25] VITALS: Ht 165.1 cm; Wt 83.4 kg
[2022-06-25 09:46] VITALS: BP 130/82
[2022-06-25 10:00] VITALS: BP 116/74
[2022-06-25 10:09] LABS: BASO% 0.3 % (0-3); EOS% 0.7 % (0-8); HEMOGLOBIN 15.9 g/dl (14.0-18.0); IMMATURE GRANULOCYTES 0.4 % (0.0-5.0); LYMPH% 35.4 % (15-41); MEAN CELL VOLUME 90.7 fL CALC (80.0-100.0); MEAN CORPUSCULAR HGB 31.4 pG CALC (26.0-32.0); MEAN CORPUSCULAR HGB CONC 34.6 g/dL CAL (32.0-36.0); MONO% 10.9 % (2-13); NEUT# 3.84 thou/uL (1.82-7.42); NEUT% 52.3 % (42-76); RED BLOOD COUNT 5.07 mill/uL (4.70-6.10); RED CELL DISTRI WIDTH 12.6 % (11.5-15.5)
[2022-06-25 10:28] LABS: ALBUMIN 4.1 g/dL (3.2-5.0); ALKALINE PHOSPHATASE 105 u/l (38-126); BUN 11 mg/dL (9-20); BUN/CREATININE RATIO 20 (12-20 (CALC)); CARBON DIOXIDE 22 mmol/l (22-30); CREATININE 0.6 mg/dL (0.7-1.3); GFR FOR AFR.AMER. > 60 ML/MIN (>=60 (CALC)); GFR OTHER RACES > 60 ML/MIN (>=60 (CALC)); SGOT/AST 35 u/l (17-59); TOTAL PROTEIN 6.7 g/dL (6.3-8.2)
[2022-06-25 10:29] LABS: ANION GAP 13 (6-22 (CALC)); BILIRUBIN, TOTAL 1.6 mg/dL (0.2-1.3); CHLORIDE 105 mmol/l (95-108); SODIUM 136 mmol/l (137-146)
[2022-06-25 10:37] VITALS: BP 107/71
[2022-06-25 10:38] VITALS: BP 107/69
[2022-06-25] MEDS ORDERED: IMODIUM A-D2 M3 PO (11:01)
[2022-06-25 11:06] VITALS: BP 107/69
== END 2022-06-25 11:15 | disposition home or self-care (01) | DRG 392 ==
LOC: ED 09:40
PROVIDERS: Family Medicine
DX: R19.7 Diarrhea, unspecified (principal); I10 Essential (primary) hypertension; E22.2 Syndrome of inappropriate secretion of antidiuretic hormone; E66.9 Obesity, unspecified; R73.03 Prediabetes; F41.9 Anxiety disorder, unspecified; K21.9 Gastro-esophageal reflux disease without esophagitis; E78.00 Pure hypercholesterolemia, unspecified

== ENCOUNTER 2022-10-10 06:23 | Emergency (ER) | payer SELFPAY ==
[2022-10-10] VITALS (8 sets, daily range): BP systolic 105–156; BP diastolic 56–90
[~2022-10-10] VITALS: Ht 165.1 cm; Wt 82.0 kg
[~2022-10-10 06:23] MED LIST changes: +IMODIUM A-D2 M3 PO
[2022-10-10] MEDS ORDERED: TAMSULOSIN0.4 MG PO (06:41)
[2022-10-10] MEDS ORDERED: PROTONIX40 MG PO (06:42)
[2022-10-10] MEDS ORDERED: LASIX20 MG PO (06:43)
[2022-10-10 06:58] LABS: BASO% 0.3 % (0-3); HEMATOCRIT 44.2 % (39.0-50.0); HEMOGLOBIN 15.3 g/dl (14.0-18.0); IMMATURE GRANULOCYTES 0.5 % (0.0-5.0); LYMPH% 45.1 % (15-41); MEAN CELL VOLUME 87.4 fL CALC (80.0-100.0); MEAN CORPUSCULAR HGB 30.2 pG CALC (26.0-32.0); MEAN CORPUSCULAR HGB CONC 34.6 g/dL CAL (32.0-36.0); MONO% 10.7 % (2-13); NEUT# 2.67 thou/uL (1.82-7.42); NEUT% 41.4 % (42-76); RED BLOOD COUNT 5.06 mill/uL (4.70-6.10)
[2022-10-10 07:13] LABS: ALBUMIN 4.1 g/dL (3.2-5.0); ALKALINE PHOSPHATASE 107 u/l (38-126); ANION GAP 12 (6-22 (CALC)); BILIRUBIN, TOTAL 1.2 mg/dL (0.2-1.3); BUN 10 mg/dL (9-20); BUN/CREATININE RATIO 17 (12-20 (CALC)); CARBON DIOXIDE 22 mmol/l (22-30); CHLORIDE 104 mmol/l (95-108); CREATININE 0.6 mg/dL (0.7-1.3); GFR FOR AFR.AMER. > 60 ML/MIN (>=60 (CALC)); GFR OTHER RACES > 60 ML/MIN (>=60 (CALC)); POTASSIUM 3.8 mmol/l (3.5-5.1); SGOT/AST 41 u/l (17-59); SODIUM 135 mmol/l (137-146); TOTAL PROTEIN 6.8 g/dL (6.3-8.2)
[2022-10-10 07:32] LABS: URINE BILIRUBIN - DIPSTICK NEGATIVE (NEGATIVE); URINE COLOR YELLOW; URINE GLUCOSE - DIPSTICK NEGATIVE (NEGATIVE)
[2022-10-10 07:33] LABS: URINE KETONE NEGATIVE (NEGATIVE); URINE PROTEIN - DIPSTICK NEGATIVE (NEG-TRACE); URINE SPECIFIC GRAVITY 1.015; URINE UROBILINOGEN - DIPSTICK 0.2 E.U./dL (0.2)
[2022-10-10 07:34] LABS: URINE BLOOD DIPSTICK NEGATIVE (NEGATIVE); URINE LEUK ESTERASE NEGATIVE (NEGATIVE); URINE NITRITE - DIPSTICK NEGATIVE (Negative)
== END 2022-10-10 10:08 | disposition home or self-care (01) | DRG 696 ==
LOC: ED 06:23
PROVIDERS: Family Medicine
DX: R30.0 Dysuria (principal); E22.2 Syndrome of inappropriate secretion of antidiuretic hormone; R10.30 Lower abdominal pain, unspecified; I10 Essential (primary) hypertension; F41.9 Anxiety disorder, unspecified; K21.9 Gastro-esophageal reflux disease without esophagitis; E78.00 Pure hypercholesterolemia, unspecified
CPT/HCPCS: Q9967

== ENCOUNTER 2022-12-17 07:49 | Emergency (ER) | payer SELFPAY ==
[2022-12-17] VITALS (25 sets, daily range): BP systolic 101–143; BP diastolic 62–85
[~2022-12-17] VITALS: Ht 165.1 cm; Wt 81.6 kg
[~2022-12-17 07:49] MED LIST changes: +LASIX20 MG PO; +TAMSULOSIN0.4 MG PO
[2022-12-17 09:48] LABS: BASO% 0.2 % (0-3); EOS% 0.3 % (0-8); HEMATOCRIT 46.6 % (39.0-50.0); HEMOGLOBIN 16.1 g/dl (14.0-18.0); IMMATURE GRANULOCYTES 0.2 % (0.0-5.0); LYMPH% 17.6 % (15-41); MEAN CORPUSCULAR HGB 31.4 pG CALC (26.0-32.0); MEAN CORPUSCULAR HGB CONC 34.5 g/dL CAL (32.0-36.0); MONO% 8.6 % (2-13); NEUT# 8.77 thou/uL (1.82-7.42); NEUT% 73.1 % (42-76); RED BLOOD COUNT 5.12 mill/uL (4.70-6.10); RED CELL DISTRI WIDTH 12.7 % (11.5-15.5)
[2022-12-17 11:06] LABS: ALBUMIN 4.3 g/dL (3.2-5.0); ALKALINE PHOSPHATASE 114 u/l (38-126); AMYLASE 66 u/l (30-110); ANION GAP 14 (6-22 (CALC)); BILIRUBIN, TOTAL 1.1 mg/dL (0.2-1.3); BUN 12 mg/dL (9-20); BUN/CREATININE RATIO 16 (12-20 (CALC)); CARBON DIOXIDE 25 mmol/l (22-30); CHLORIDE 101 mmol/l (95-108); CREATININE 0.7 mg/dL (0.7-1.3); GFR FOR AFR.AMER. > 60 ML/MIN (>=60 (CALC)); GFR OTHER RACES > 60 ML/MIN (>=60 (CALC)); LIPASE 81 u/l (23-300); POTASSIUM 3.6 mmol/l (3.5-5.1); SGOT/AST 39 u/l (17-59); SODIUM 136 mmol/l (137-146); TOTAL PROTEIN 7.4 g/dL (6.3-8.2)
[2022-12-17 13:01] LABS: URINE BILIRUBIN - DIPSTICK Negative (NEGATIVE); URINE BLOOD DIPSTICK Negative (NEGATIVE); URINE GLUCOSE - DIPSTICK Negative (NEGATIVE); URINE KETONE Negative (NEGATIVE); URINE LEUK ESTERASE Negative (NEGATIVE); URINE NITRITE - DIPSTICK Negative (Negative); URINE PH 5.5 (4.5-8.0); URINE PROTEIN - DIPSTICK Negative (NEG-TRACE); URINE SPECIFIC GRAVITY 1.025; URINE UROBILINOGEN - DIPSTICK 0.2 E.U./dL (0.2)
[2022-12-17 13:02] LABS: URINE COLOR Yellow
== END 2022-12-17 16:04 | disposition home or self-care (01) | DRG 866 ==
LOC: ED 07:49
PROVIDERS: Family Medicine
DX: B34.9 Viral infection, unspecified (principal); E22.2 Syndrome of inappropriate secretion of antidiuretic hormone; I10 Essential (primary) hypertension; F41.9 Anxiety disorder, unspecified; K21.9 Gastro-esophageal reflux disease without esophagitis; E78.00 Pure hypercholesterolemia, unspecified; R73.03 Prediabetes; Z20.822 Contact with and (suspected) exposure to COVID-19